=== PATIENT | male | born 1970 | race Caucasian/White ===

== ENCOUNTER 2016-12-02 17:56 | Inpatient (IN) | payer OTHER ==
[2016-12-02] MEDS ORDERED: ACETAMINOPHEN INJECTION 100 ML IVPB ONE (18:02)
[2016-12-02] MEDS ORDERED: SODIUM CHLORIDE 1,000 ML IV STA (18:04)
--- NOTE | 2016-12-02 18:04 | PDOC ---
History of Present Illness - General History Source: Patient, EMS, Old Records Exam Limitations: No Limitations - History of Present Illness Initial Comments: 12/02/16 19:25 The patient is a 46 year old male with past medical history of IDDM, CHF, CKD, hypothyroidism, bipolar disorder, and schizophrenia who arrives to the ED via EMS from the [address] [place] [address] with complaints of fever, chills, and weakness that began today. At the clinic, the patient was noted to be hypotensive with bp of 70/40. The patient also complains of a dry cough which began three days ago and states that he has become increasingly weak since this morning. He has also complained of urinary urgency, stating he has had a few accidents today. He denies any nausea, vomiting diarrhea. He denies chest pain or shortness of breath. He denies any other urinary symptoms. As per EMS, the patient recently left [facility] last week and has since been living on his own, with a nurse visiting during the day. He reports being compliant with his medications and took his insulin this morning. PCP: Rey Pitts <Ellyn Cruz - Last Filed: 12/02/16 22:59> <Jayleen Suárez - Last Filed: 12/03/16 02:30> - General Chief Complaint: SIRS, Suspected/Possible Stated Complaint: WEAKNESS Time Seen by Provider: 12/02/16 18:02 Past History <Ellyn Cruz - Last Filed: 12/02/16 22:59> - Past Medical History Anemia: No Asthma: No Cardiac Disorders: Yes (hypertension) CVA: No CHF: Yes Dementia: No Diabetes: Yes GI Disorders: Yes (chronic kidney disorder) Disorders: No HTN: Yes Hypercholesterolemia: Yes Psychiatric Problems: Yes (bipolar disorder,unspecified schizophrenia) Seizures: No Thyroid Disease: Yes (hypothyroidism) - Surgical History Abdominal Surgery: No Appendectomy: No Cardiac Surgery: No Cholecystectomy: No Lung Surgery: No Neurologic Surgery: No - Immunization History Immunization Up to Date: Yes - Psycho/Social/Smoking Cessation Hx Anxiety: No Suicidal Ideation: No Smoking History: Former smoker Have you smoked in the past 12 months: No Number of Cigarettes Smoked Daily: 5 'Breaking Loose' booklet given: 10/18/15 Hx Alcohol Use: No Drug/Substance Use Hx: No Substance Use Type: None Hx Substance Use Treatment: No <Jayleen Suárez - Last Filed: 12/03/16 02:30> - Past Medical History Allergies/Adverse Reactions: Allergies Allergy/AdvReac Type Severity Reaction Status Date / Time No Known Allergies Allergy Verified 07/06/16 08:47 Home Medications: Ambulatory Orders Acetaminophen [Tylenol] 325 mg PO PRN 12/02/16 Chlorpromazine [Thorazine -] 150 mg PO HS 12/02/16 Clonazepam [Klonopin] 1 mg PO HS 12/02/16 Collagenase Clostridium Hist. [Santyl] 1 applic TP DAILY 12/02/16 Divalproex [Depakote -] 500 mg PO BID 12/02/16 Docusate Sodium [Colace -] 100 mg PO BID 12/02/16 Dorzolamide HCl [Trusopt 2%] 1 drop OD BID 12/02/16 Fenofibric Acid (Choline) [Fenofibric Acid] 135 mg PO DAILY 12/02/16 Guaifenesin [Robitussin] 100 mg PO PRN 12/02/16 Hydrocodone/Acetaminophen [[place] 7.5-325 Tablet] 1 each PO Q8H 12/02/16 Insulin (Novolog) [Novolog] 0 units SQ PRN 12/02/16 Insulin Glargine,Hum.rec.anlog [Lantus (nf)] 0 units SQ DAILY 12/02/16 Insulin Lispro [Humalog] 100 unit SQ ASDIR 12/02/16 Ketoconazole 2% Shampoo [Nizoral 2% Shampoo -] 1 applic TP ASDIR 12/02/16 Linagliptin [Tradjenta] 5 mg PO DAILY 12/02/16 Lorazepam [Ativan] 1 mg PO PRN 12/02/16 Magnesium Hydroxide [Milk of Magnesia] 400 mg PO PRN 12/02/16 Na Phos,M-B/Na Phos,Di-Ba [Fleet Enema] 133 ml RC PRN 12/02/16 Ramipril [Altace] 2.5 mg PO DAILY 12/02/16 Selenium Sulfide [Selenium Sulfide 2.25% Shampoo] 1 applic TP ASDIR 12/02/16 Simvastatin [Zocor -] 20 mg PO HS 12/02/16 Timolol 0.5% [Timoptic 0.5%] 1 drop OD BID 12/02/16 Review of Systems - Review of Systems Able to Perform ROS?: Yes Comments:: 12/02/16 19:25 CONSTITUTIONAL: Present: fever, chills, generalized weakness Absent: diaphoresis, loss of appetite HEENT: Absent: rhinorrhea, nasal congestion, throat pain, throat swelling, difficulty swallowing, mouth swelling, ear pain, eye pain, visual Changes CARDIOVASCULAR: Absent: chest pain, syncope, palpitations, irregular heart rate, lightheadedness , peripheral edema RESPIRATORY: Present: cough Absent: shortness of breath, dyspnea with exertion, orthopnea, wheezing, stridor , hemoptysis GASTROINTESTINAL: Absent: abdominal pain, abdominal distension, nausea, vomiting, diarrhea, constipation, melena, hematochezia GENITOURINARY: Present: urinary urgency Absent: dysuria, frequency, hesitancy, hematuria, flank pain, genital pain MUSCULOSKELETAL: Absent: myalgia, arthralgia, joint swelling SKIN: Absent: rash, itching, pallor HEMATOLOGIC/IMMUNOLOGIC: Absent: easy bleeding, easy bruising, lymphadenopathy, frequent infections ENDOCRINE: Absent: unexplained weight gain, unexplained weight loss, heat intolerance, cold intolerance NEUROLOGIC: Absent: headache, focal weakness or paresthesias, dizziness, unsteady gait, seizure, mental status changes, bladder or bowel incontinence PSYCHIATRIC: Absent: anxiety, depression, suicidal or homicidal ideation, hallucinations. All Other Systems: Reviewed and Negative <Ellny Cruz - Last Filed: 12/02/16 22:59> *Physical Exam - Vital Signs Last Vital Signs Temp Pulse Resp BP Pulse Ox 103.4 F H 126 H 28 H 106/63 98 12/02/16 18:02 12/02/16 18:02 12/02/16 18:02 12/02/16 18:02 12/02/16 18:02 - Physical Exam Comments: 12/02/16 19:32 GENERAL: Febrile. Awake and alert. No acute distress. HEENT: Normocephalic, atraumatic. PERRLA, EOMI. No conjunctival pallor. Sclera are non- icteric. Moist mucous membranes. Oropharynx is clear. NECK: Supple. Full ROM. No JVD. Carotid pulses 2+ and symmetric, without bruits. No thyromegaly. No lymphadenopathy. CARDIOVASCULAR: Tachycardic. Regular rate and rhythm. No murmurs, rubs, or gallops. Distal pulses are 2+ and symmetric. PULMONARY: No evidence of respiratory distress. Lungs clear to auscultation bilaterally. No wheezing, rales or rhonchi. ABDOMINAL: Soft. Non-tender. Non-distended. No rebound or guarding. No organomegaly. Normoactive bowel sounds. MUSCULOSKELETAL Normal range of motion at all joints. No bony deformities or tenderness. No CVA tenderness. EXTREMITIES: Left lower leg is very erythematous, warm to touch, and edematous. There is a 6mm foul smelling, nonhealing, ulcer on left big toe with warmth, cellulitis, and erythema on the dorsal surface of the foot. No cyanosis. No clubbing. No calf tenderness. SKIN: Warm and dry. Normal capillary refill. No rashes. No jaundice. NEUROLOGICAL: Alert, awake, appropriate. Cranial nerves 2-12 intact. No deficits to light touch and temperature in face, upper extremities and lower extremities. No motor deficits in the in face, upper extremities and lower extremities. Normoreflexic in the upper and lower extremities. Normal speech. Toes are down-going bilaterally. Gait is normal without ataxia. PSYCHIATRIC: Cooperative. Good eye contact. Appropriate mood and affect. <Ellyn Cruz - Last Filed: 12/02/16 22:59> Heart Score/ECG Review - ECG Intrepretation Comment:: 12/02/16 20:01 ECG obtained at 19:01 Possible left atrial enlargement Incomplete right bundle branch block Left anterior fasicular block Vent rate: 132 bpm <Ellyn Cruz - Last Filed: 12/02/16 22:59> ED Treatment Course - LABORATORY CBC & Chemistry Diagram: 12/02/16 18:18 12/02/16 18:18 - ADDITIONAL ORDERS Additional order review: Laboratory Results 12/02/16 12/02/16 12/02/16 18:33 18:18 18:18 INR PTT (Actin FS) VBG pH 7.39 POC VBG pCO2 35.0 L POC VBG pO2 25.8 L Sodium 139 Potassium 4.9 Chloride 108 H Carbon Dioxide 22 Anion Gap 9 BUN 30 H D Creatinine 3.1 H Creat Clearance w eGFR 21.61 Random Glucose 99 D Lactic Acid 1.515 Calcium 8.8 Total Bilirubin 0.6 AST 58 H ALT 37 Alkaline Phosphatase 60 Creatine Kinase 345 H Troponin I 0.05 D Total Protein 7.9 Albumin 2.7 L 12/02/16 18:18 INR 1.20 H PTT (Actin FS) 36.8 H VBG pH POC VBG pCO2 POC VBG pO2 Sodium Potassium Chloride Carbon Dioxide Anion Gap BUN Creatinine Creat Clearance w eGFR Random Glucose Lactic Acid Calcium Total Bilirubin AST ALT Alkaline Phosphatase Creatine Kinase Troponin I Total Protein Albumin 12/02/16 18:18 RBC 3.84 L MCV 92.5 MCHC 32.8 RDW 16.6 H MPV 7.7 Neutrophils % 86.5 H D Lymphocytes % 6.7 L D Monocytes % 6.0 Eosinophils % 0.1 D Basophils % 0.7 - Medications Given in the ED: ED Medications Discontinued Medications Generic Name Dose Route Start Last Admin Trade Name Johnsonq PRN Reason Stop Dose Admin Acetaminophen 1,000 mg 12/02/16 18:05 12/02/16 18:08 Ofirmev Injection - IVPB 12/02/16 18:06 1,000 mg ONCE ONE Administration Sodium Chloride 1,000 mls @ 1,000 mls/hr 12/02/16 18:04 12/02/16 18:07 Normal Saline - IV 12/02/16 19:03 1,000 mls/hr ASDIR STA Administration <Ellyn Cruz - Last Filed: 12/02/16 22:59> - LABORATORY CBC & Chemistry Diagram: 12/02/16 18:18 12/02/16 18:18 <Jayleen Suárez - Last Filed: 12/03/16 02:30> Medical Decision Making - Medical Decision Making 12/02/16 22:59 22:[address] Dr. Mariza Bartlett, admitting physician for Dr. Pitts. Call returned at 22:19. Case was discussed and patient will be admitted. <Ellyn Cruz - Last Filed: 12/02/16 22:59> - Medical Decision Making 12/03/16 02:28 46-year-old male brought in by ambulance for hypotension, tachycardia and fever Medical history significant for insulin-dependent diabetes History the patient had been living at [facility] for 3 years and one week ago was moved into a home. He felt weak today and went to the [facility] clinic and was found have a systolic blood pressure of 70 and an ambulance was called to the clinic Patient has left lower leg cellulitis He is a leukocytosis of almost 20,000 . He received Zosyn and vancomycin. Upon arrival case With Dr. Bartlett admitted the patient to [facility] <Jayleen Suárez - Last Filed: 12/03/16 02:30> *DC/Admit/Observation/Transfer - Attestations Scribe Attestion: 12/02/16 19:33 Documentation prepared by Ellyn Cruz, acting as auditor medical claims for Jayleen Suárez MD/DO. <Ellyn Cruz - Last Filed: 12/02/16 22:59> - Discharge Dispostion Admit: Yes <Jayleen Suárez - Last Filed: 12/03/16 02:30> Diagnosis at time of Disposition: Controlled type 1 diabetes mellitus with peripheral vascular disease, Left leg cellulitis Fever Qualifiers: Fever type: unspecified Qualified Code(s): R50.9 - Fever, unspecified Chronic kidney disease Qualifiers: Chronic kidney disease stage: unspecified stage Qualified Code(s): N18.9 - Chronic kidney disease, unspecified - Referrals
[2016-12-02] MEDS ORDERED: ACETAMINOPHEN 1000 MG/100 ML VIAL (NON FORMULARY) IVPB ONE (18:05)
[2016-12-02] MEDS ORDERED: VANCOMYCIN 1,000 MG in DEXTROSE 5%-WATER - 250 ML IVPB ONE (18:20)
[2016-12-02] MEDS ORDERED: PIPERACILLIN/TAZOB 3.375 GM 3.375 GM in DEXTROSE 5%-WATER - 50 ML IVPB ONE (18:20)
[2016-12-02 18:38] LABS: VENOUS BLOOD GAS HCO3 20.6 meq/L (22-29); VENOUS PH 7.39 (7.31-7.41)
[2016-12-02 18:39] LABS: BASOPHIL 0.7 % (0-2.0); EOSINOPHIL 0.1 % (0-4.5); MCH 30.3 pg (25.7-33.7); MCHC 32.8 g/dl (32.0-35.9); MEAN CELL VOLUME 92.5 fl (80-96); MEAN PLT VOLUME 7.7 fl (7.5-11.1); NEUTROPHILS 86.5 % (42.8-82.8); PLATELET COUNT 198 K/MM3 (134-434); RDW 16.6 % (11.9-15.9); WHITE BLOOD COUNT 19.4 K/mm3 (4.0-10.0)
[2016-12-02 19:07] LABS: ALBUMIN 2.7 g/dl (3.4-5.0); CALCIUM 8.8 mg/dL (8.5-10.1)
[2016-12-02 19:12] LABS: BILIRUBIN,TOTAL 0.6 mg/dL (0.2-1.0); CREATININE 3.1 mg/dL (0.7-1.3); INR 1.2 (0.82-1.09); PROTHROMBIN TIME (PATIENT) 13.3 SEC (9.98-11.88); TOT PROT 7.9 g/dl (6.4-8.2); TROPONIN I 0.05 ng/ml (0.00-0.05)
[2016-12-02 19:15] LABS: ACTIVATED PTT 36.8 SECONDS (26.9-34.4)
[2016-12-02 19:30] LABS: URINE APPEARANCE CLEAR; URINE BILIRUBIN NEGATIVE (NEGATIVE); URINE COLOR YELLOW; URINE GLUCOSE (UA) NEGATIVE (NEGATIVE); URINE KETONE TRACE (NEGATIVE); URINE LEUK ESTERASE NEGATIVE (NEGATIVE); URINE NITRITE NEGATIVE (NEGATIVE); URINE UROBILINOGEN NEGATIVE E.U./dl (0.2-1.0)
[2016-12-02 19:34] LABS: URINE BLOOD 1+ (NEGATIVE); URINE PROTEIN 2+ (NEGATIVE)
[2016-12-02 19:36] LABS: URINE BACTERIA RARE /hpf (NONE SEEN); URINE MUCUS RARE; URINE RBC 4 /hpf (0-3); URINE WBC 2 /hpf (3-5)
[2016-12-02] MEDS ORDERED: PIPERACILLIN/TAZOB 3.375 GM 50 ML IVPB ONE (19:55)
[2016-12-03 01:44] LABS: ARTERIAL BLD GAS O2 SATURATION 93.8 % (90-98.9); ARTERIAL BLOOD GAS BASE EXCESS -4.5 meq/l (-2-2); ARTERIAL BLOOD GAS PO2 74.4 mmHg (80-100)
[2016-12-03 01:46] LABS: ALLENS TEST POSITIVE; ART PUNCT SITE RIGHT RADIAL; LPM/O2% 21%; PT. ON O2? NO; TYPE OF O2 ROOM AIR
[2016-12-03] MEDS ORDERED: clonazePAM 0.5 MG TABLET PO ONE (03:09)
[2016-12-03] MEDS ORDERED: clonazePAM 0.5 MG TABLET ONE (03:12)
[2016-12-03] MEDS ORDERED: ACETAMINOPHEN 325 MG TABLET (FP) ONE (03:14)
[2016-12-03] MEDS ORDERED: ACETAMINOPHEN 325 MG TABLET (FP) PO ONE (03:15)
--- NOTE | 2016-12-03 10:41 | HP ---
Admitting History and Physical - Primary Care Physician PCP: Rey Pitts - Admission Chief Complaint: LEDY. UTI. FEVER. WEAKNESS. 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: Other (DEPRESSION/FLAT AFFECT) Cardiovascular: Yes: HTN, Hyperlipdemia, Other Renal/: Yes: Other (CKD) Psych: Yes: Bipolar Endocrine: Yes: Diabetes Mellitus, Hypothyroidism - Past Surgical History Past Surgical History: Yes: None - Smoking History Smoking history: Former smoker Have you smoked in the past 12 months: No Aproximately how many cigarettes per day: 5 - Alcohol/Substance Use Hx Alcohol Use: No - Social History History of Recent Travel: No Home Medications - Allergies Allergies/Adverse Reactions: Allergies Allergy/AdvReac Type Severity Reaction Status Date / Time No Known Allergies Allergy Verified 07/06/16 08:47 - Home Medications Home Medications: Ambulatory Orders Acetaminophen [Tylenol] 325 mg PO PRN 12/02/16 Chlorpromazine [Thorazine -] 150 mg PO HS 12/02/16 Clonazepam [Klonopin] 1 mg PO HS 12/02/16 Collagenase Clostridium Hist. [Santyl] 1 applic TP DAILY 12/02/16 Divalproex [Depakote -] 500 mg PO BID 12/02/16 Docusate Sodium [Colace -] 100 mg PO BID 12/02/16 Dorzolamide HCl [Trusopt 2%] 1 drop OD BID 12/02/16 Fenofibric Acid (Choline) [Fenofibric Acid] 135 mg PO DAILY 12/02/16 Guaifenesin [Robitussin] 100 mg PO PRN 12/02/16 Hydrocodone/Acetaminophen [[place] 7.5-325 Tablet] 1 each PO Q8H 12/02/16 Insulin (Novolog) [Novolog] 0 units SQ PRN 12/02/16 Insulin Glargine,Hum.rec.anlog [Lantus (nf)] 0 units SQ DAILY 12/02/16 Insulin Lispro [Humalog] 100 unit SQ ASDIR 12/02/16 Ketoconazole 2% Shampoo [Nizoral 2% Shampoo -] 1 applic TP ASDIR 12/02/16 Linagliptin [Tradjenta] 5 mg PO DAILY 12/02/16 Lorazepam [Ativan] 1 mg PO PRN 12/02/16 Magnesium Hydroxide [Milk of Magnesia] 400 mg PO PRN 12/02/16 Na Phos,M-B/Na Phos,Di-Ba [Fleet Enema] 133 ml RC PRN 12/02/16 Ramipril [Altace] 2.5 mg PO DAILY 12/02/16 Selenium Sulfide [Selenium Sulfide 2.25% Shampoo] 1 applic TP ASDIR 12/02/16 Simvastatin [Zocor -] 20 mg PO HS 12/02/16 Timolol 0.5% [Timoptic 0.5%] 1 drop OD BID 12/02/16 Family Disease History - Family Disease History Family Disease History: Diabetes: Father Review of Systems - Review of Systems Constitutional: reports: Chills, Fever Cardiovascular: denies: Chest Pain Respiratory: denies: SOB Gastrointestinal: denies: Abdominal Pain Physical Examination Vital Signs: Vital Signs Temperature 100 F H 12/03/16 07:51 Pulse Rate 105 H 12/03/16 07:51 Respiratory Rate 18 12/03/16 07:51 Blood Pressure 96/62 12/03/16 07:51 O2 Sat by Pulse Oximetry (%) 96 12/03/16 07:51 Constitutional: Yes: Calm Cardiovascular: Yes: Regular Rate and Rhythm, S2, S3 Respiratory: Yes: CTA Bilaterally Gastrointestinal: Yes: Normal Bowel Sounds, Soft Edema: Yes Integumentary: Yes: Erythema (LLE + L #1 TOE ULCER -> PER PATIENT BOTH ARE CHRONIC) Imaging - Results Chest X-ray: Report Reviewed Problem List - Problems (1) LEDY (acute kidney injury) Code(s): N17.9 - ACUTE KIDNEY FAILURE, UNSPECIFIED (2) Bipolar 1 disorder Code(s): F31.9 - BIPOLAR DISORDER, UNSPECIFIED (3) Chronic kidney disease Code(s): N18.9 - CHRONIC KIDNEY DISEASE, UNSPECIFIED Qualifiers: Chronic kidney disease stage: unspecified stage Qualified Code(s): N18.9 - Chronic kidney disease, unspecified (4) Diabetes Code(s): E11.9 - TYPE 2 DIABETES MELLITUS WITHOUT COMPLICATIONS Qualifiers: Diabetes mellitus type: type 2 Diabetes mellitus complication status: without complication (5) Fever Code(s): R50.9 - FEVER, UNSPECIFIED Qualifiers: Fever type: unspecified Qualified Code(s): R50.9 - Fever, unspecified (6) Hypothyroid Code(s): E03.9 - HYPOTHYROIDISM, UNSPECIFIED Qualifiers: Hypothyroidism type: acquired Qualified Code(s): E03.9 - Hypothyroidism, unspecified (7) Sepsis Code(s): A41.9 - SEPSIS, UNSPECIFIED ORGANISM Qualifiers: Sepsis type: sepsis due to unspecified organism Qualified Code(s): A41.9 - Sepsis, unspecified organism (8) Weakness Code(s): R53.1 - WEAKNESS (9) HTN (hypertension) Code(s): I10 - ESSENTIAL (PRIMARY) HYPERTENSION (10) CHF (congestive heart failure) Code(s): I50.9 - HEART FAILURE, UNSPECIFIED (11) Psychosis Code(s): F29 - UNSP PSYCHOSIS NOT DUE TO A SUBSTANCE OR KNOWN PHYSIOL COND Assessment/Plan The patient is a 46 year old male with past medical history of IDDM, CHF, CKD, hypothyroidism, bipolar disorder, and schizophrenia who arrives to the ED via EMS from the [address] [place] [address] with complaints of fever, chills, and weakness that began today. At the clinic, the patient was noted to be hypotensive with bp of 70/40. The patient also complains of a dry cough which began three days ago and states that he has become increasingly weak since this morning. He has also complained of urinary urgency, stating he has had a few accidents today. He denies any nausea, vomiting diarrhea. He denies chest pain or shortness of breath. He denies any other urinary symptoms. As per EMS, the patient recently left [facility] last week and has since been living on his own, with a nurse visiting during the day. He reports being compliant with his medications and took his insulin this morning. PCP: Rey Pitts (1) LEDY (acute kidney injury) Code(s): N17.9 - ACUTE KIDNEY FAILURE, UNSPECIFIED H/O CKD Cr 3.4 RENAL CONSULTED (2) Bipolar 1 disorder Code(s): F31.9 - BIPOLAR DISORDER, UNSPECIFIED FROM [facility] Rx RESUMED (3) Chronic kidney disease Code(s): N18.9 - CHRONIC KIDNEY DISEASE, UNSPECIFIED Qualifiers: Chronic kidney disease stage: unspecified stage Qualified Code(s): N18.9 - Chronic kidney disease, unspecified (4) Diabetes Code(s): E11.9 - TYPE 2 DIABETES MELLITUS WITHOUT COMPLICATIONS Qualifiers: Diabetes mellitus type: type 2 Diabetes mellitus complication status: without complication BGM ISS (5) Fever Code(s): R50.9 - FEVER, UNSPECIFIED Qualifiers: Fever type: unspecified Qualified Code(s): R50.9 - Fever, unspecified Tmax 103.4 CXr NAD F/U CULTURES ID CONSULTED L #1 TOE ULCER + LLE CELLULITIS? -> DR BONNER (6) Hypothyroid Code(s): E03.9 - HYPOTHYROIDISM, UNSPECIFIED Qualifiers: Hypothyroidism type: acquired Qualified Code(s): E03.9 - Hypothyroidism, unspecified - TSH (7) Sepsis Code(s): A41.9 - SEPSIS, UNSPECIFIED ORGANISM Qualifiers: Sepsis type: sepsis due to unspecified organism Qualified Code(s): A41.9 - Sepsis, unspecified organism (8) Weakness Code(s): R53.1 - WEAKNESS R/O SEPSIS (9) HTN (hypertension) Code(s): I10 - ESSENTIAL (PRIMARY) HYPERTENSION (10) CHF (congestive heart failure) Code(s): I50.9 - HEART FAILURE, UNSPECIFIED CXr NAD TROP NEG x 1 -> F/U - BNP (11) Psychosis Code(s): F29 - UNSP PSYCHOSIS NOT DUE TO A SUBSTANCE OR KNOWN PHYSIOL COND AND [employer]
[2016-12-03] MEDS ORDERED: clonazePAM 0.5 MG TABLET PO PRN (10:47)
[2016-12-03 10:51] VITALS: BMI 31.4
[2016-12-03] MEDS ORDERED: ACETAMINOPHEN 325 MG TABLET (FP) PO PRN (11:00)
--- NOTE | 2016-12-03 11:49 | PN ---
Progress Note (short form) - Note Progress Note: ID Consult dictated cellulitis L LE non-healing L great toe ulcer fever/leukocytosis- possible sepsis secondary to skin infection chronic kidney disease bipolar disorder diabetes mellitus possible UTI Pending c/s, empiric vancomycin/ zosyn adjusted for renal failure
--- NOTE | 2016-12-03 11:54 | EKG ---
Test Reason : Blood Pressure : / mmHG Vent. Rate : 132 BPM Atrial Rate : 132 BPM P-R Int : 148 ms QRS Dur : 108 ms QT Int : 306 ms P-R-T Axes : 062 -48 033 degrees QTc Int : 453 ms SINUS TACHYCARDIA POSSIBLE LEFT ATRIAL ENLARGEMENT INCOMPLETE RIGHT BUNDLE BRANCH BLOCK LEFT ANTERIOR FASCICULAR BLOCK ABNORMAL ECG WHEN COMPARED WITH ECG OF 06-JUL-2016 08:46, LEFT ANTERIOR FASCICULAR BLOCK IS NOW PRESENT INCOMPLETE RIGHT BUNDLE BRANCH BLOCK IS NOW PRESENT Confirmed by BEBETO BARCENAS, IVY ([id number]) on 12/03/2016 11:54:02 AM Referred By: Confirmed By:IVY TATE MD
[2016-12-03] MEDS ORDERED: VANCOMYCIN 1 GRAM (PRE-DOCKED) 250 ML IVPB ONE ×2 (11:55→12:10)
[2016-12-03] MEDS ORDERED: HEPARIN NA (PORCINE) 5,000 UNITS/ML 1ML VIAL ONE (12:10)
[2016-12-03] MEDS ORDERED: DIVALPROEX SODIUM 500 MG TABLET E.C. PO ONE (12:32)
[2016-12-03] MEDS: HEPARIN NA (PORCINE) 5,000 UNITS/ML 1ML VIAL SQ SCH ×2 (12:47→21:40)
[2016-12-03] MEDS ORDERED: INSULIN REGULAR HUMAN 100 UNITS/ML *VIAL SQ ONE (12:51)
[2016-12-03] MEDS ORDERED: INSULIN REGULAR HUMAN 100 UNITS/ML *VIAL ONE (12:54)
[2016-12-03] MEDS: PIPERACILLIN/TAZOB 2.25 GM 50 ML IVPB SCH ×4 (13:04→20:30)
--- NOTE | 2016-12-03 13:47 | CONS ---
DATE OF CONSULTATION: DATE OF DICTATION: 12/03/2016 The patient is a 46-year-old male with history of bipolar disorder, diabetes, chronic kidney disease, evaluated for cellulitis and sepsis. The patient had been a resident of [facility] for the past 3 years. He was discharged approximately 1 week ago. He reports that over the past 2-3 days he had experienced generalized weakness, fever, and chills. He had presented to local clinic where he was noted to be hypotensive with a blood pressure of 70/40. He also complained of dry cough and some urinary urgency. He was transferred to the emergency room at [facility] where he was found to have a fever of 103.4, white blood cell count of 19,000. Examination revealed cellulitis of the left lower extremity. He was empirically treated with vancomycin and Zosyn. At the present time he complains of some left lower extremity pain. He has had a nonhealing ulcer present on his great toe for some time. He denied any purulent wound drainage. He denies recent illness. According to the notes, he was hospitalized last in June of 2016, at which time he required an ICU admission for cellulitis complicated by sepsis. PAST MEDICAL HISTORY: Positive for bipolar disorder, schizophrenia, diabetes mellitus, hypertension, chronic kidney disease, hypothyroidism, nonhealing left great toe ulcer. PAST SURGICAL HISTORY: Status post right ankle fracture. ALLERGIES: No known allergies. MEDICATIONS: NovoLog, Thorazine, Klonopin, Depakote, Altace, Zocor. SOCIAL HISTORY: He was residing in a care home facility for 3 years until his discharge approximately 1 week ago. He is a former smoker. REVIEW OF SYSTEMS: Neurologic: Positive for bipolar disorder. No loss of consciousness, seizure activity, or focal weakness. Cardiac: Negative chest pain or palpitations. Respiratory: Positive for dry cough. Gastrointestinal: Negative vomiting or diarrhea. Genitourinary: Positive for urinary urgency. LABORATORY DATA: White count 19.4, hematocrit 35.5, platelet count 198. BUN 30, creatinine 3.1. Urinalysis: Two white cells. Chest x-ray negative for acute infiltrate. PHYSICAL EXAMINATION: General: He is awake and alert. He is not acutely toxic appearing. Flat affect. Vital Signs: Temperature 98.4, blood pressure 104/65, pulse 103 and regular, respirations 20 per minute. HEENT: Sclerae are anicteric. Cardiovascular: Heart sounds S1, S2. Respiratory: Lungs clear bilaterally. No rhonchi, rales, or wheezing. Abdomen: Soft. No tenderness elicited. No mass, rebound, or rigidity. Examination of the Left Lower Extremity: The patient has a 2-cm dry ulceration present on the plantar aspect of the left great toe. There is erythema and swelling of the left great toe. Erythema extends to the dorsum of the foot and proximally to the leg up to the midcalf area. It is warm to touch. No crepitus or fluctuance. No lymphangitic streaking. IMPRESSION: 1. Cellulitis of the left lower extremity. 2. Nonhealing left great toe ulcer. 3. Fever, leukocytosis, possible sepsis secondary to skin infection. 4. Chronic kidney disease. 5. Bipolar disorder. 6. Diabetes mellitus. 7. Possible urinary tract infection. Pending sepsis workup, empiric antibiotic coverage with vancomycin and Zosyn adjusted for renal failure. Local wound care. Podiatry evaluation for possible debridement of ulcer and trimming of hypertrophic toenails. Thank you for the kind referral. PAULINE WATSON M.D. [id number]
[2016-12-03] MEDS: INSULIN SLIDING SCALE (NOVOLOG) 1 VIAL SQ SCH ×2 (16:39→21:40)
[2016-12-03] MEDS ORDERED: PT OWN MED DRAWER 7, Y5N ONE (17:22)
--- NOTE | 2016-12-03 18:02 | CONSULT ---
Consult Consult Specialty:: Nephrology Reason for Consultation:: LEDY and CKD - History of Present Illness Chief Complaint: fever, chills, and weakness History of Present Illness: Pt is a 46 year old male with pmhx of CKD, DM, CHF, hypothyroidism, and schizophrenia who presents to the ER from [facility] for fever and chills. He was found to have lower extremity cellulitis. He was hypotensive in the ER. I was called to evaluate him for elevated creatinine. Pt is known to me from prior visits. He has not followed up in the office. He has poor outpt follow up. He denies hematuria. He says she does take his meds. 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) Cardio/Vascular: Yes: HTN, Hyperlipdemia, Other Renal/: Yes: Renal Inusuff, Other (CKD) Psych: Yes: Bipolar Endocrine: Yes: Diabetes Mellitus, Hypothyroidism - Past Surgical History Past Surgical History: Yes: None - Alcohol/Substance Use Hx Alcohol Use: No - Smoking History Smoking history: Former smoker Have you smoked in the past 12 months: No Aproximately how many cigarettes per day: 5 - Social History Usual Living Arrangement: [facility] History of Recent Travel: No Home Medications - Allergies Allergies/Adverse Reactions: Allergies Allergy/AdvReac Type Severity Reaction Status Date / Time No Known Allergies Allergy Verified 07/06/16 08:47 - Home Medications Home Medications: Ambulatory Orders Acetaminophen [Tylenol] 325 mg PO PRN 12/02/16 Chlorpromazine [Thorazine -] 150 mg PO HS 12/02/16 Clonazepam [Klonopin] 1 mg PO HS 12/02/16 Collagenase Clostridium Hist. [Santyl] 1 applic TP DAILY 12/02/16 Divalproex [Depakote -] 500 mg PO BID 12/02/16 Docusate Sodium [Colace -] 100 mg PO BID 12/02/16 Dorzolamide HCl [Trusopt 2%] 1 drop OD BID 12/02/16 Fenofibric Acid (Choline) [Fenofibric Acid] 135 mg PO DAILY 12/02/16 Guaifenesin [Robitussin] 100 mg PO PRN 12/02/16 Hydrocodone/Acetaminophen [[place] 7.5-325 Tablet] 1 each PO Q8H 12/02/16 Insulin (Novolog) [Novolog] 0 units SQ PRN 12/02/16 Insulin Glargine,Hum.rec.anlog [Lantus (nf)] 0 units SQ DAILY 12/02/16 Insulin Lispro [Humalog] 100 unit SQ ASDIR 12/02/16 Ketoconazole 2% Shampoo [Nizoral 2% Shampoo -] 1 applic TP ASDIR 12/02/16 Linagliptin [Tradjenta] 5 mg PO DAILY 12/02/16 Lorazepam [Ativan] 1 mg PO PRN 12/02/16 Magnesium Hydroxide [Milk of Magnesia] 400 mg PO PRN 12/02/16 Na Phos,M-B/Na Phos,Di-Ba [Fleet Enema] 133 ml RC PRN 12/02/16 Ramipril [Altace] 2.5 mg PO DAILY 12/02/16 Selenium Sulfide [Selenium Sulfide 2.25% Shampoo] 1 applic TP ASDIR 12/02/16 Simvastatin [Zocor -] 20 mg PO HS 12/02/16 Timolol 0.5% [Timoptic 0.5%] 1 drop OD BID 12/02/16 Family Disease History - Family Disease History Family Disease History: Diabetes: Father Review of Systems - Review of Systems Constitutional: reports: Chills, Fever Eyes: reports: No Symptoms HENT: reports: No Symptoms Neck: reports: No Symptoms Cardiovascular: reports: No Symptoms Respiratory: reports: Cough Gastrointestinal: reports: No Symptoms Genitourinary: reports: Dysuria Musculoskeletal: reports: No Symptoms Integumentary: reports: Erythema Endocrine: reports: No Symptoms Hematology/Lymphatic: reports: No Symptoms Physical Exam Vital Signs: Vital Signs Temperature 97.8 F 12/03/16 17:46 Pulse Rate 95 H 12/03/16 17:46 Respiratory Rate 18 12/03/16 15:38 Blood Pressure 118/71 12/03/16 17:46 O2 Sat by Pulse Oximetry (%) 97 12/03/16 15:40 Constitutional: Yes: Anxious Eyes: Yes: Conjunctiva Clear HENT: Yes: Atraumatic Cardiovascular: Yes: S1, S2 Respiratory: Yes: CTA Bilaterally Gastrointestinal: Yes: Soft Renal/: Yes: WNL Musculoskeletal: Yes: Muscle Weakness Edema: Yes Integumentary: Yes: Other (cellulitis, left leg) Neurological: Yes: Oriented Psychiatric: Yes: Agitated Labs: Laboratory Tests 12/02/16 12/02/16 18:18 19:13 WBC 19.4 H D RBC 3.84 L Hgb 11.6 L D Hct 35.5 Urine Color Yellow Urine Appearance Clear Urine pH 6.0 Ur Specific [place] 1.016 Urine Protein 2+ H Urine Glucose (UA) Negative Urine Ketones Trace H Urine Blood 1+ H Urine Nitrite Negative Urine Bilirubin Negative Urine Urobilinogen Negative Ur Leukocyte Esterase Negative Urine RBC 4 Urine WBC 2 Imaging - Results Chest X-ray: Report Reviewed Problem List - Problems (1) CHF (congestive heart failure) Code(s): I50.9 - HEART FAILURE, UNSPECIFIED (2) Chronic kidney disease Code(s): N18.9 - CHRONIC KIDNEY DISEASE, UNSPECIFIED Qualifiers: Chronic kidney disease stage: unspecified stage Qualified Code(s): N18.9 - Chronic kidney disease, unspecified (3) HTN (hypertension) Code(s): I10 - ESSENTIAL (PRIMARY) HYPERTENSION (4) LEDY (acute kidney injury) Code(s): N17.9 - ACUTE KIDNEY FAILURE, UNSPECIFIED (5) Bipolar 1 disorder Code(s): F31.9 - BIPOLAR DISORDER, UNSPECIFIED (6) Cellulitis of left lower leg Code(s): L03.116 - CELLULITIS OF LEFT LOWER LIMB (7) Diabetes mellitus type 2 in obese Code(s): E11.9 - TYPE 2 DIABETES MELLITUS WITHOUT COMPLICATIONS E66.9 - OBESITY, UNSPECIFIED (8) Hypothyroid Code(s): E03.9 - HYPOTHYROIDISM, UNSPECIFIED Qualifiers: Hypothyroidism type: acquired Qualified Code(s): E03.9 - Hypothyroidism, unspecified Assessment/Plan Current Medications Generic Name Dose Route Start Last Admin Trade Name Freq PRN Reason Stop Dose Admin Acetaminophen 325 mg 12/03/16 11:00 Tylenol - PO Q6H PRN Atorvastatin Calcium 10 mg 12/03/16 22:00 Lipitor - PO HS RO[facility] Chlorpromazine HCl 150 mg 12/03/16 22:00 Thorazine - PO HS ROBE Clonazepam 1 mg 12/03/16 10:47 Klonopin - PO Q6H PRN AGITATION Collagenase 1 applic 12/04/16 10:00 Santyl - TP DAILY [facility] Divalproex Sodium 500 mg 12/03/16 22:00 Depakote - PO BID [facility] Docusate Sodium 100 mg 12/03/16 22:00 Colace - PO BID [facility] Dorzolamide HCl 1 drop 12/03/16 22:00 Trusopt 2% OD BID [facility] Heparin Sodium (Porcine) 5,000 unit 12/03/16 10:00 12/03/16 12:47 Heparin - SQ 5,000 unit BID [facility] Administration Piperacillin Sod/Tazobactam Sod 50 mls @ 100 mls/hr 12/03/16 12:30 12/03/16 17: 23 Zosyn 2.25gm Ivpb (Pre-Docked) IVPB 100 mls/hr Q8H-IV [facility] Administration Insulin Aspart 0 vial 12/03/16 16:30 12/03/16 16:39 Novolog Vial Sliding Scale - SQ 8 units ACHS [facility] Administration Protocol Ramipril 2.5 mg 12/04/16 10:00 Altace - PO DAILY [facility] Timolol Maleate 1 drop 12/03/16 22:00 Timoptic 0.5% OD BID [facility] Impression 1. CKD 2. DM 3. sepsis 4. cellulitis 5. bipolar 6. schizophrenia 7. 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
[2016-12-03] MEDS ORDERED: SODIUM CHLORIDE 1,000 ML IV SCH (18:30)
--- NOTE | 2016-12-03 18:47 | CONSULT ---
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) Cardio/Vascular: Yes: HTN, Hyperlipdemia, Other Renal/: Yes: Renal Inusuff, Other (CKD) Psych: Yes: Bipolar Endocrine: Yes: Diabetes Mellitus, Hypothyroidism - Past Surgical History Past Surgical History: Yes: None - Alcohol/Substance Use Hx Alcohol Use: No - Smoking History Smoking history: Former smoker Have you smoked in the past 12 months: No Aproximately how many cigarettes per day: 5 - Social History Usual Living Arrangement: [facility] History of Recent Travel: No Home Medications - Allergies Allergies/Adverse Reactions: Allergies Allergy/AdvReac Type Severity Reaction Status Date / Time No Known Allergies Allergy Verified 07/06/16 08:47 - Home Medications Home Medications: Ambulatory Orders Acetaminophen [Tylenol] 325 mg PO PRN 12/02/16 Chlorpromazine [Thorazine -] 150 mg PO HS 12/02/16 Clonazepam [Klonopin] 1 mg PO HS 12/02/16 Collagenase Clostridium Hist. [Santyl] 1 applic TP DAILY 12/02/16 Divalproex [Depakote -] 500 mg PO BID 12/02/16 Docusate Sodium [Colace -] 100 mg PO BID 12/02/16 Dorzolamide HCl [Trusopt 2%] 1 drop OD BID 12/02/16 Fenofibric Acid (Choline) [Fenofibric Acid] 135 mg PO DAILY 12/02/16 Guaifenesin [Robitussin] 100 mg PO PRN 12/02/16 Hydrocodone/Acetaminophen [[place] 7.5-325 Tablet] 1 each PO Q8H 12/02/16 Insulin (Novolog) [Novolog] 0 units SQ PRN 12/02/16 Insulin Glargine,Hum.rec.anlog [Lantus (nf)] 0 units SQ DAILY 12/02/16 Insulin Lispro [Humalog] 100 unit SQ ASDIR 12/02/16 Ketoconazole 2% Shampoo [Nizoral 2% Shampoo -] 1 applic TP ASDIR 12/02/16 Linagliptin [Tradjenta] 5 mg PO DAILY 12/02/16 Lorazepam [Ativan] 1 mg PO PRN 12/02/16 Magnesium Hydroxide [Milk of Magnesia] 400 mg PO PRN 12/02/16 Na Phos,M-B/Na Phos,Di-Ba [Fleet Enema] 133 ml RC PRN 12/02/16 Ramipril [Altace] 2.5 mg PO DAILY 12/02/16 Selenium Sulfide [Selenium Sulfide 2.25% Shampoo] 1 applic TP ASDIR 12/02/16 Simvastatin [Zocor -] 20 mg PO HS 12/02/16 Timolol 0.5% [Timoptic 0.5%] 1 drop OD BID 12/02/16 Family Disease History - Family Disease History Family Disease History: Diabetes: Father Physical Exam Vital Signs: Vital Signs Temperature 97.8 F 12/03/16 17:46 Pulse Rate 95 H 12/03/16 17:46 Respiratory Rate 18 12/03/16 15:38 Blood Pressure 118/71 12/03/16 17:46 O2 Sat by Pulse Oximetry (%) 97 12/03/16 15:40 Assessment/Plan Vascular Surgery The patient is a 46 year old male with past medical history of IDDM, CHF, CKD, hypothyroidism, bipolar disorder, and schizophrenia who arrives to the ED via EMS from the [address] [place] [address] with complaints of fever, chills, and weakness that began today. At the clinic, the patient was noted to be hypotensive with bp of 70/40. The patient also complains of a dry cough which began three days ago and states that he has become increasingly weak since this morning. He has also complained of urinary urgency, stating he has had a few accidents today. He denies any nausea, vomiting diarrhea. He denies chest pain or shortness of breath. He denies any other urinary symptoms. As per EMS, the patient recently left [facility] last week and has since been living on his own, with a nurse visiting during the day. He reports being compliant with his medications and took his insulin this morning. PCP: Rey Pitts [facility] - NC/AT Lung - cTA Heart - RRR ABd - soft,nt,nd ext - warm, LLE great toe ulcer with callus. Left lower ext erythema. A/P LLE cellulitis. Left great toe ulcer for some time. Well known from wound care clinic. Pt with palpable pulses. IV antibiotics for cellulitis. Left great toe might have osteo. Can get MRI to diagnose. Ld Ribeiro DO
[2016-12-03] MEDS: DOCUSATE SODIUM 100 MG CAPSULE (FP) PO SCH (21:40)
[2016-12-03] MEDS: ATORVASTATIN CA 10 MG TABLET (FP) PO SCH (21:40)
[2016-12-03] MEDS ORDERED: TIMOLOL 0.5% OPHTHALMIC SOL 5 ML BOTTLE OD SCH (22:00)
[2016-12-03] MEDS ORDERED: DORZOLAMIDE 2% HCL OPHTHALMIC SOLUTION 10 ML BOTTLE OD SCH (22:00)
[2016-12-03] MEDS: CHLORPROMAZINE PO SCH (22:09)
[2016-12-03] MEDS: DIVALPROEX SODIUM 500 MG TABLET E.C. PO SCH (22:09)
[2016-12-04] MEDS: PIPERACILLIN/TAZOB 2.25 GM 50 ML IVPB SCH ×3 (02:28→17:32)
[2016-12-04] MEDS: INSULIN SLIDING SCALE (NOVOLOG) 1 VIAL SQ SCH ×4 (06:36→21:29)
[2016-12-04 08:42] LABS: CALCIUM 8.1 mg/dL (8.5-10.1); CREATININE 2.9 mg/dL (0.7-1.3)
[2016-12-04 08:44] LABS: ALBUMIN 2.1 g/dl (3.4-5.0)
[2016-12-04 08:46] LABS: BASOPHIL 0.5 % (0-2.0); MCH 31.1 pg (25.7-33.7); MCHC 34.1 g/dl (32.0-35.9); MEAN CELL VOLUME 91.1 fl (80-96); MEAN PLT VOLUME 7.5 fl (7.5-11.1); NEUTROPHILS 56.8 % (42.8-82.8); PLATELET COUNT 127 K/MM3 (134-434); RDW 16.7 % (11.9-15.9); WHITE BLOOD COUNT 7.2 K/mm3 (4.0-10.0)
[2016-12-04 08:50] LABS: BILIRUBIN,TOTAL 0.7 mg/dL (0.2-1.0); CREATININE 2.9 mg/dL (0.7-1.3); TOT PROT 6.3 g/dl (6.4-8.2); TROPONIN I 0.08 ng/ml (0.00-0.05)
[2016-12-04 09:40] LABS: THYROID STIMULATING HORMONE 15.8 uIU/ml (0.358-3.74)
[2016-12-04] MEDS: DIVALPROEX SODIUM 500 MG TABLET E.C. PO SCH ×2 (10:02→21:28)
[2016-12-04] MEDS: RAMIPRIL 2.5 MG CAPSULE (FP) PO SCH (10:02)
[2016-12-04] MEDS: DOCUSATE SODIUM 100 MG CAPSULE (FP) PO SCH ×2 (10:02→21:28)
[2016-12-04] MEDS: HEPARIN NA (PORCINE) 5,000 UNITS/ML 1ML VIAL SQ SCH ×2 (10:08→21:29)
[2016-12-04] MEDS: COLLAGENASE CLOSTRIDIUM HIST. 30 GRAMS TUBE TP SCH (10:08)
[2016-12-04] MEDS: TIMOLOL 0.5% OPHTHALMIC SOL 5 ML BOTTLE OU SCH ×2 (10:09→21:34)
[2016-12-04] MEDS: DORZOLAMIDE 2% HCL OPHTHALMIC SOLUTION 10 ML BOTTLE OU SCH ×2 (10:09→21:34)
[2016-12-04] MEDS ORDERED: VANCOMYCIN 1,000 MG in DEXTROSE 5%-WATER - 250 ML IVPB ONE (10:13)
--- NOTE | 2016-12-04 10:18 | PN ---
Progress Note, Physician History of Present Illness: No c/o leg pain No c/o fever/ chills Tolerating antibiotics Temps down- afebrile WBC improved- now WNL - Current Medication List Current Medications: Active Medications Acetaminophen (Tylenol -) 325 mg PO Q6H PRN Atorvastatin Calcium (Lipitor -) 10 mg PO HS [facility] Last Admin: 12/03/16 21:40 Dose: 10 mg Chlorpromazine HCl 100 mg/ (Chlorpromazine HCl 50 mg) 150 mg PO HS [facility] Last Admin: 12/03/16 22:09 Dose: 150 mg Clonazepam (Klonopin -) 1 mg PO Q6H PRN PRN Reason: AGITATION Last Admin: 12/04/16 08:05 Dose: 1 mg Collagenase (Santyl -) 1 applic TP DAILY [facility] Last Admin: 12/04/16 10:08 Dose: 1 applic Divalproex Sodium (Depakote -) 500 mg PO BID [facility] Last Admin: 12/04/16 10:02 Dose: 500 mg Docusate Sodium (Colace -) 100 mg PO BID [facility] Last Admin: 12/04/16 10:02 Dose: 100 mg Dorzolamide HCl (Trusopt 2%) 1 drop OU BID [facility] Last Admin: 12/04/16 10:09 Dose: 1 drop Heparin Sodium (Porcine) (Heparin -) 5,000 unit SQ BID [facility] Last Admin: 12/04/16 10:08 Dose: 5,000 unit Piperacillin Sod/Tazobactam Sod (Zosyn 2.25gm Ivpb (Pre-Docked)) 50 mls @ 100 mls/hr IVPB Q8H-IV [facility] Last Admin: 12/04/16 02:28 Dose: 100 mls/hr Sodium Chloride (Normal Saline -) 1,000 mls @ 65 mls/hr IV ASDIR [facility] Last Admin: 12/03/16 20:29 Dose: 65 mls/hr Vancomycin HCl 1,000 mg/ (Dextrose) 250 mls @ 200 mls/hr IVPB ONCE ONE Stop: 12/04/16 11:27 Insulin Aspart (Novolog Vial Sliding Scale -) 0 vial SQ ACHS [facility] PRN Reason: Protocol Last Admin: 12/04/16 06:36 Dose: Not Given Ramipril (Altace -) 2.5 mg PO DAILY [facility] Last Admin: 12/04/16 10:02 Dose: 2.5 mg Timolol Maleate (Timoptic 0.5%) 1 drop OU BID [facility] Last Admin: 12/04/16 10:09 Dose: 1 drop - Objective Vital Signs: Vital Signs Temperature 98.4 F 12/04/16 06:15 Pulse Rate 82 12/04/16 06:15 Respiratory Rate 20 12/04/16 06:15 Blood Pressure 106/63 12/04/16 06:15 O2 Sat by Pulse Oximetry (%) 98 12/03/16 20:32 Constitutional: Yes: No Distress Eyes: Yes: Conjunctiva Clear Cardiovascular: Yes: Regular Rate and Rhythm, S1, S2 Respiratory: Yes: CTA Bilaterally Gastrointestinal: Yes: Normal Bowel Sounds, Soft. No: Tenderness Extremities: Yes: Other (decreased erythema/ warmth L LE + dry ulcer , great toe ) Labs: CBC, BMP 12/04/16 07:00 12/04/16 07:00 INR, PTT INR 1.20 (0.82-1.09) H 12/02/16 18:18 Assessment/Plan Cellulitis L LE Non healing great toe ulcer Fever/ leukocytosis- improved Azotemia Await c/s Continue zosyn. Redose vancomycin
[2016-12-04] MEDS ORDERED: VANCOMYCIN 1 GRAM (PRE-DOCKED) 1,000 MG/250 ML BAG IVPB ONE ×2 (11:00→17:30)
--- NOTE | 2016-12-04 11:28 | PN ---
Progress Note, Physician History of Present Illness: Pt seen and examined at bedside. He is awake and appears comfortable. - Current Medication List Current Medications: Active Medications Acetaminophen (Tylenol -) 325 mg PO Q6H PRN Atorvastatin Calcium (Lipitor -) 10 mg PO HS [facility] Last Admin: 12/03/16 21:40 Dose: 10 mg Chlorpromazine HCl 100 mg/ (Chlorpromazine HCl 50 mg) 150 mg PO HS [facility] Last Admin: 12/03/16 22:09 Dose: 150 mg Clonazepam (Klonopin -) 1 mg PO Q6H PRN PRN Reason: AGITATION Last Admin: 12/04/16 08:05 Dose: 1 mg Collagenase (Santyl -) 1 applic TP DAILY [facility] Last Admin: 12/04/16 10:08 Dose: 1 applic Divalproex Sodium (Depakote -) 500 mg PO BID [facility] Last Admin: 12/04/16 10:02 Dose: 500 mg Docusate Sodium (Colace -) 100 mg PO BID [facility] Last Admin: 12/04/16 10:02 Dose: 100 mg Dorzolamide HCl (Trusopt 2%) 1 drop OU BID [facility] Last Admin: 12/04/16 10:09 Dose: 1 drop Heparin Sodium (Porcine) (Heparin -) 5,000 unit SQ BID [facility] Last Admin: 12/04/16 10:08 Dose: 5,000 unit Piperacillin Sod/Tazobactam Sod (Zosyn 2.25gm Ivpb (Pre-Docked)) 50 mls @ 100 mls/hr IVPB Q8H-IV [facility] Last Admin: 12/04/16 02:28 Dose: 100 mls/hr Sodium Chloride (Normal Saline -) 1,000 mls @ 65 mls/hr IV ASDIR [facility] Last Admin: 12/03/16 20:29 Dose: 65 mls/hr Insulin Aspart (Novolog Vial Sliding Scale -) 0 vial SQ ACHS [facility] PRN Reason: Protocol Last Admin: 12/04/16 06:36 Dose: Not Given Ramipril (Altace -) 2.5 mg PO DAILY [facility] Last Admin: 12/04/16 10:02 Dose: 2.5 mg Timolol Maleate (Timoptic 0.5%) 1 drop OU BID [facility] Last Admin: 12/04/16 10:09 Dose: 1 drop - Objective Vital Signs: Vital Signs Temperature 98.4 F 12/04/16 06:15 Pulse Rate 82 12/04/16 06:15 Respiratory Rate 20 12/04/16 06:15 Blood Pressure 106/63 12/04/16 06:15 O2 Sat by Pulse Oximetry (%) 98 12/03/16 20:32 Constitutional: Yes: Calm Eyes: Yes: Conjunctiva Clear HENT: Yes: Atraumatic Cardiovascular: Yes: S1, S2 Respiratory: Yes: CTA Bilaterally Gastrointestinal: Yes: Soft Genitourinary: Yes: WNL Musculoskeletal: Yes: WNL Edema: No Integumentary: Yes: Other (left leg cellulitis) Neurological: Yes: Oriented Psychiatric: Yes: Agitated Labs: CBC, BMP 12/04/16 07:00 12/04/16 07:00 INR, PTT INR 1.20 (0.82-1.09) H 12/02/16 18:18 Problem List - Problems (1) CHF (congestive heart failure) Code(s): I50.9 - HEART FAILURE, UNSPECIFIED (2) Chronic kidney disease Code(s): N18.9 - CHRONIC KIDNEY DISEASE, UNSPECIFIED Qualifiers: Chronic kidney disease stage: unspecified stage Qualified Code(s): N18.9 - Chronic kidney disease, unspecified (3) HTN (hypertension) Code(s): I10 - ESSENTIAL (PRIMARY) HYPERTENSION (4) LEDY (acute kidney injury) Code(s): N17.9 - ACUTE KIDNEY FAILURE, UNSPECIFIED (5) Bipolar 1 disorder Code(s): F31.9 - BIPOLAR DISORDER, UNSPECIFIED (6) Cellulitis of left lower leg Code(s): L03.116 - CELLULITIS OF LEFT LOWER LIMB (7) Diabetes mellitus type 2 in obese Code(s): E11.9 - TYPE 2 DIABETES MELLITUS WITHOUT COMPLICATIONS E66.9 - OBESITY, UNSPECIFIED (8) Hypothyroid Code(s): E03.9 - HYPOTHYROIDISM, UNSPECIFIED Qualifiers: Hypothyroidism type: acquired Qualified Code(s): E03.9 - Hypothyroidism, unspecified Assessment/Plan Current Medications Generic Name Dose Route Start Last Admin Trade Name Freq PRN Reason Stop Dose Admin Acetaminophen 325 mg 12/03/16 11:00 Tylenol - PO Q6H PRN Atorvastatin Calcium 10 mg 12/03/16 22:00 12/03/16 21:40 Lipitor - PO 10 mg HS [facility] Administration Chlorpromazine HCl 100 mg/ 150 mg 12/03/16 22:00 12/03/16 22:09 Chlorpromazine HCl 50 mg PO 150 mg HS [facility] Administration Clonazepam 1 mg 12/03/16 10:47 12/04/16 08:05 Klonopin - PO 1 mg Q6H PRN Administration AGITATION Collagenase 1 applic 12/04/16 10:00 12/04/16 10:08 Santyl - TP 1 applic DAILY [facility] Administration Divalproex Sodium 500 mg 12/03/16 22:00 12/04/16 10:02 Depakote - PO 500 mg BID [facility] Administration Docusate Sodium 100 mg 12/03/16 22:00 12/04/16 10:02 Colace - PO 100 mg BID [facility] Administration Dorzolamide HCl 1 drop 12/04/16 10:00 12/04/16 10:09 Trusopt 2% OU 1 drop BID [facility] Administration Heparin Sodium (Porcine) 5,000 unit 12/03/16 10:00 12/04/16 10:08 Heparin - SQ 5,000 unit BID [facility] Administration Piperacillin Sod/Tazobactam Sod 50 mls @ 100 mls/hr 12/03/16 12:30 12/04/16 02: 28 Zosyn 2.25gm Ivpb (Pre-Docked) IVPB 100 mls/hr Q8H-IV [facility] Administration Sodium Chloride 1,000 mls @ 65 mls/hr 12/03/16 18:30 12/03/16 20:29 Normal Saline - IV 65 mls/hr ASDIR [facility] Administration Insulin Aspart 0 vial 12/03/16 16:30 12/04/16 06:36 Novolog Vial Sliding Scale - SQ Not Given ACHS [facility] Protocol Ramipril 2.5 mg 12/04/16 10:00 12/04/16 10:02 Altace - PO 2.5 mg DAILY [facility] Administration Timolol Maleate 1 drop 12/04/16 10:00 12/04/16 10:09 Timoptic 0.5% OU 1 drop BID [facility] Administration Impression 1. CKD 2. DM 3. sepsis 4. cellulitis 5. bipolar 6. schizophrenia 7. 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
[2016-12-04] MEDS: SODIUM CHLORIDE 1,000 ML IV SCH (19:30)
--- NOTE | 2016-12-04 19:38 | PN ---
Progress Note, Physician - Current Medication List Current Medications: Active Medications Acetaminophen (Tylenol -) 325 mg PO Q6H PRN Atorvastatin Calcium (Lipitor -) 10 mg PO HS [facility] Last Admin: 12/03/16 21:40 Dose: 10 mg Chlorpromazine HCl 100 mg/ (Chlorpromazine HCl 50 mg) 150 mg PO HS [facility] Last Admin: 12/03/16 22:09 Dose: 150 mg Clonazepam (Klonopin -) 1 mg PO Q6H PRN PRN Reason: AGITATION Last Admin: 12/04/16 08:05 Dose: 1 mg Collagenase (Santyl -) 1 applic TP DAILY [facility] Last Admin: 12/04/16 10:08 Dose: 1 applic Divalproex Sodium (Depakote -) 500 mg PO BID [facility] Last Admin: 12/04/16 10:02 Dose: 500 mg Docusate Sodium (Colace -) 100 mg PO BID [facility] Last Admin: 12/04/16 10:02 Dose: 100 mg Dorzolamide HCl (Trusopt 2%) 1 drop OU BID [facility] Last Admin: 12/04/16 10:09 Dose: 1 drop Heparin Sodium (Porcine) (Heparin -) 5,000 unit SQ BID [facility] Last Admin: 12/04/16 10:08 Dose: 5,000 unit Piperacillin Sod/Tazobactam Sod (Zosyn 2.25gm Ivpb (Pre-Docked)) 50 mls @ 100 mls/hr IVPB Q8H-IV [facility] Last Admin: 12/04/16 17:32 Dose: 100 mls/hr Sodium Chloride (Normal Saline -) 1,000 mls @ 45 mls/hr IV ASDIR [facility] Insulin Aspart (Novolog Vial Sliding Scale -) 0 vial SQ ACHS [facility] PRN Reason: Protocol Last Admin: 12/04/16 17:27 Dose: 8 units Ramipril (Altace -) 2.5 mg PO DAILY [facility] Last Admin: 12/04/16 10:02 Dose: 2.5 mg Timolol Maleate (Timoptic 0.5%) 1 drop OU BID [facility] Last Admin: 12/04/16 10:09 Dose: 1 drop - Objective Vital Signs: Vital Signs Temperature 97.3 F L 12/04/16 16:15 Pulse Rate 77 12/04/16 16:15 Respiratory Rate 20 01/19/17 16:15 Blood Pressure 115/68 12/04/16 16:15 O2 Sat by Pulse Oximetry (%) 98 12/03/16 20:32 Cardiovascular: Yes: WNL Respiratory: Yes: WNL Gastrointestinal: Yes: WNL Labs: CBC, BMP 12/04/16 07:00 12/04/16 07:00 INR, PTT INR 1.20 (0.82-1.09) H 12/02/16 18:18 Problem List - Problems (1) LEDY (acute kidney injury) Code(s): N17.9 - ACUTE KIDNEY FAILURE, UNSPECIFIED (2) Bipolar 1 disorder Code(s): F31.9 - BIPOLAR DISORDER, UNSPECIFIED (3) Chronic kidney disease Code(s): N18.9 - CHRONIC KIDNEY DISEASE, UNSPECIFIED Qualifiers: Chronic kidney disease stage: unspecified stage Qualified Code(s): N18.9 - Chronic kidney disease, unspecified (4) Diabetes Code(s): E11.9 - TYPE 2 DIABETES MELLITUS WITHOUT COMPLICATIONS Qualifiers: Diabetes mellitus type: type 2 Diabetes mellitus complication status: without complication (5) Fever Code(s): R50.9 - FEVER, UNSPECIFIED Qualifiers: Fever type: unspecified Qualified Code(s): R50.9 - Fever, unspecified (6) Hypothyroid Code(s): E03.9 - HYPOTHYROIDISM, UNSPECIFIED Qualifiers: Hypothyroidism type: acquired Qualified Code(s): E03.9 - Hypothyroidism, unspecified (7) Sepsis Code(s): A41.9 - SEPSIS, UNSPECIFIED ORGANISM Qualifiers: Sepsis type: sepsis due to unspecified organism Qualified Code(s): A41.9 - Sepsis, unspecified organism (8) Weakness Code(s): R53.1 - WEAKNESS (9) HTN (hypertension) Code(s): I10 - ESSENTIAL (PRIMARY) HYPERTENSION (10) CHF (congestive heart failure) Code(s): I50.9 - HEART FAILURE, UNSPECIFIED (11) Psychosis Code(s): F29 - UNSP PSYCHOSIS NOT DUE TO A SUBSTANCE OR KNOWN PHYSIOL COND Assessment/Plan The patient is a 46 year old male with past medical history of IDDM, CHF, CKD, hypothyroidism, bipolar disorder, and schizophrenia who arrives to the ED via EMS from the [address] [place] [address] with complaints of fever, chills, and weakness that began today. At the clinic, the patient was noted to be hypotensive with bp of 70/40. The patient also complains of a dry cough which began three days ago and states that he has become increasingly weak since this morning. He has also complained of urinary urgency, stating he has had a few accidents today. He denies any nausea, vomiting diarrhea. He denies chest pain or shortness of breath. He denies any other urinary symptoms. As per EMS, the patient recently left [facility] last week and has since been living on his own, with a nurse visiting during the day. He reports being compliant with his medications and took his insulin this morning. PCP: Rey Pitts (1) LEDY (acute kidney injury) Code(s): N17.9 - ACUTE KIDNEY FAILURE, UNSPECIFIED H/O CKD Cr AT BASELINE RENAL CONSULT APPRECIATED (2) Bipolar 1 disorder Code(s): F31.9 - BIPOLAR DISORDER, UNSPECIFIED FROM [facility] Rx RESUMED (3) Chronic kidney disease Code(s): N18.9 - CHRONIC KIDNEY DISEASE, UNSPECIFIED Qualifiers: Chronic kidney disease stage: unspecified stage Qualified Code(s): N18.9 - Chronic kidney disease, unspecified (4) Diabetes Code(s): E11.9 - TYPE 2 DIABETES MELLITUS WITHOUT COMPLICATIONS Qualifiers: Diabetes mellitus type: type 2 Diabetes mellitus complication status: without complication BGM ISS (5) Fever Code(s): R50.9 - FEVER, UNSPECIFIED Qualifiers: Fever type: unspecified Qualified Code(s): R50.9 - Fever, unspecified CXr NAD F/U CULTURES -> NEG ID CONSULT APPRECIATED L #1 TOE ULCER + LLE CELLULITIS DR BONNER ON CASE -> F/U L #1 TOE MRI TO R/O OM (6) Hypothyroid Code(s): E03.9 - HYPOTHYROIDISM, UNSPECIFIED Qualifiers: Hypothyroidism type: acquired Qualified Code(s): E03.9 - Hypothyroidism, unspecified TSH HIGH -> SYNTHROID RESTARTED (7) Sepsis Code(s): A41.9 - SEPSIS, UNSPECIFIED ORGANISM Qualifiers: Sepsis type: sepsis due to unspecified organism Qualified Code(s): A41.9 - Sepsis, unspecified organism (8) Weakness Code(s): R53.1 - WEAKNESS R/O SEPSIS (9) HTN (hypertension) Code(s): I10 - ESSENTIAL (PRIMARY) HYPERTENSION (10) CHF (congestive heart failure) Code(s): I50.9 - HEART FAILURE, UNSPECIFIED CXr NAD TROP NEG x 1 -> F/U - BNP (11) Psychosis Code(s): F29 - UNSP PSYCHOSIS NOT DUE TO A SUBSTANCE OR KNOWN PHYSIOL 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
[2016-12-04 21:17] LABS: URINE CREATININE 33.3 mg/dL
[2016-12-04] MEDS: ATORVASTATIN CA 10 MG TABLET (FP) PO SCH (21:28)
[2016-12-04] MEDS: CHLORPROMAZINE PO SCH (21:30)
[2016-12-04] MEDS ORDERED: INSULIN (NOVOLOG) ASPART 100 UNITS/ML 10ML VIAL ONE (22:09)
[2016-12-05] MEDS: PIPERACILLIN/TAZOB 2.25 GM 50 ML IVPB SCH ×2 (01:09→10:00)
[2016-12-05] MEDS: SODIUM CHLORIDE 1,000 ML IV SCH (06:30)
[2016-12-05] MEDS: INSULIN SLIDING SCALE (NOVOLOG) 1 VIAL SQ SCH ×4 (06:30→23:10)
[2016-12-05 08:30] LABS: BASOPHIL 0.6 % (0-2.0); EOSINOPHIL 1.7 % (0-4.5); MCH 31.3 pg (25.7-33.7); MCHC 34.3 g/dl (32.0-35.9); MEAN PLT VOLUME 7.9 fl (7.5-11.1); NEUTROPHILS 45.3 % (42.8-82.8); PLATELET COUNT 118 K/MM3 (134-434); RDW 16.9 % (11.9-15.9); WHITE BLOOD COUNT 5.9 K/mm3 (4.0-10.0)
[2016-12-05 09:07] LABS: CREATININE 2.6 mg/dL (0.7-1.3)
[2016-12-05] MEDS: RAMIPRIL 2.5 MG CAPSULE (FP) PO SCH (09:52)
[2016-12-05] MEDS: DIVALPROEX SODIUM 500 MG TABLET E.C. PO SCH ×2 (09:52→23:10)
[2016-12-05] MEDS: HEPARIN NA (PORCINE) 5,000 UNITS/ML 1ML VIAL SQ SCH ×2 (09:52→23:10)
[2016-12-05] MEDS: TIMOLOL 0.5% OPHTHALMIC SOL 5 ML BOTTLE OU SCH ×2 (09:59→23:11)
[2016-12-05] MEDS: COLLAGENASE CLOSTRIDIUM HIST. 30 GRAMS TUBE TP SCH (09:59)
[2016-12-05] MEDS: DORZOLAMIDE 2% HCL OPHTHALMIC SOLUTION 10 ML BOTTLE OU SCH ×2 (10:00→23:11)
--- NOTE | 2016-12-05 10:41 | PN ---
Progress Note, Physician - Current Medication List Current Medications: Active Medications Acetaminophen (Tylenol -) 325 mg PO Q6H PRN Atorvastatin Calcium (Lipitor -) 10 mg PO HS [facility] Last Admin: 12/04/16 21:28 Dose: 10 mg Chlorpromazine HCl 100 mg/ (Chlorpromazine HCl 50 mg) 150 mg PO HS [facility] Last Admin: 12/04/16 21:30 Dose: 150 mg Clonazepam (Klonopin -) 1 mg PO Q6H PRN PRN Reason: AGITATION Last Admin: 12/04/16 08:05 Dose: 1 mg Collagenase (Santyl -) 1 applic TP DAILY [facility] Last Admin: 12/05/16 09:59 Dose: 1 applic Divalproex Sodium (Depakote -) 500 mg PO BID [facility] Last Admin: 12/05/16 09:52 Dose: 500 mg Docusate Sodium (Colace -) 100 mg PO BID [facility] Last Admin: 12/04/16 21:28 Dose: Not Given Dorzolamide HCl (Trusopt 2%) 1 drop OU BID [facility] Last Admin: 12/05/16 10:00 Dose: 1 drop Heparin Sodium (Porcine) (Heparin -) 5,000 unit SQ BID [facility] Last Admin: 12/05/16 09:52 Dose: 5,000 unit Piperacillin Sod/Tazobactam Sod (Zosyn 2.25gm Ivpb (Pre-Docked)) 50 mls @ 100 mls/hr IVPB Q8H-IV [facility] Last Admin: 12/05/16 10:00 Dose: 100 mls/hr Sodium Chloride (Normal Saline -) 1,000 mls @ 45 mls/hr IV ASDIR [facility] Last Admin: 12/05/16 06:30 Dose: 45 mls/hr Insulin Aspart (Novolog Vial Sliding Scale -) 0 vial SQ ACHS [facility] PRN Reason: Protocol Last Admin: 12/05/16 06:30 Dose: 4 units Ramipril (Altace -) 2.5 mg PO DAILY [facility] Last Admin: 12/05/16 09:52 Dose: 2.5 mg Timolol Maleate (Timoptic 0.5%) 1 drop OU BID [facility] Last Admin: 12/05/16 09:59 Dose: 1 drop - Objective Vital Signs: Vital Signs Temperature 97.9 F 12/05/16 05:00 Pulse Rate 72 12/05/16 05:00 Respiratory Rate 24 12/05/16 05:00 Blood Pressure 110/58 12/05/16 05:00 O2 Sat by Pulse Oximetry (%) 100 12/04/16 20:04 Labs: CBC, BMP 12/05/16 07:15 12/05/16 07:15 INR, PTT INR 1.20 (0.82-1.09) H 12/02/16 18:18 Problem List - Problems (1) LEDY (acute kidney injury) Code(s): N17.9 - ACUTE KIDNEY FAILURE, UNSPECIFIED (2) Bipolar 1 disorder Code(s): F31.9 - BIPOLAR DISORDER, UNSPECIFIED (3) Chronic kidney disease Code(s): N18.9 - CHRONIC KIDNEY DISEASE, UNSPECIFIED Qualifiers: Qualified Code(s): N18.9 - Chronic kidney disease, unspecified (4) Diabetes Code(s): E11.9 - TYPE 2 DIABETES MELLITUS WITHOUT COMPLICATIONS (5) Fever Code(s): R50.9 - FEVER, UNSPECIFIED Qualifiers: Qualified Code(s): R50.9 - Fever, unspecified (6) Hypothyroid Code(s): E03.9 - HYPOTHYROIDISM, UNSPECIFIED Qualifiers: Qualified Code(s): E03.9 - Hypothyroidism, unspecified (7) Sepsis Code(s): A41.9 - SEPSIS, UNSPECIFIED ORGANISM Qualifiers: Qualified Code(s): A41.9 - Sepsis, unspecified organism (8) Weakness Code(s): R53.1 - WEAKNESS (9) HTN (hypertension) Code(s): I10 - ESSENTIAL (PRIMARY) HYPERTENSION (10) CHF (congestive heart failure) Code(s): I50.9 - HEART FAILURE, UNSPECIFIED (11) Psychosis Code(s): F29 - UNSP PSYCHOSIS NOT DUE TO A SUBSTANCE OR KNOWN PHYSIOL COND Assessment/Plan The patient is a 46 year old male with past medical history of IDDM, CHF, CKD, hypothyroidism, bipolar disorder, and schizophrenia who arrives to the ED via EMS from the [address] [place] [address] with complaints of fever, chills, and weakness that began today. At the clinic, the patient was noted to be hypotensive with bp of 70/40. The patient also complains of a dry cough which began three days ago and states that he has become increasingly weak since this morning. He has also complained of urinary urgency, stating he has had a few accidents today. He denies any nausea, vomiting diarrhea. He denies chest pain or shortness of breath. He denies any other urinary symptoms. As per EMS, the patient recently left [facility] last week and has since been living on his own, with a nurse visiting during the day. He reports being compliant with his medications and took his insulin this morning. PCP: Rey Pitts (1) LEDY (acute kidney injury) Code(s): N17.9 - ACUTE KIDNEY FAILURE, UNSPECIFIED H/O CKD Cr AT BASELINE RENAL CONSULT APPRECIATED (2) Bipolar 1 disorder Code(s): F31.9 - BIPOLAR DISORDER, UNSPECIFIED FROM [facility] Rx RESUMED (3) Chronic kidney disease Code(s): N18.9 - CHRONIC KIDNEY DISEASE, UNSPECIFIED Qualifiers: Chronic kidney disease stage: unspecified stage Qualified Code(s): N18.9 - Chronic kidney disease, unspecified (4) Diabetes Code(s): E11.9 - TYPE 2 DIABETES MELLITUS WITHOUT COMPLICATIONS Qualifiers: Diabetes mellitus type: type 2 Diabetes mellitus complication status: without complication BGM ISS (5) Fever Code(s): R50.9 - FEVER, UNSPECIFIED Qualifiers: Fever type: unspecified Qualified Code(s): R50.9 - Fever, unspecified CXr NAD F/U CULTURES -> NEG ID CONSULT APPRECIATED L #1 TOE ULCER + LLE CELLULITIS DR BONNER ON CASE -> F/U L #1 TOE MRI TO R/O OM (6) Hypothyroid Code(s): E03.9 - HYPOTHYROIDISM, UNSPECIFIED Qualifiers: Hypothyroidism type: acquired Qualified Code(s): E03.9 - Hypothyroidism, unspecified TSH HIGH -> SYNTHROID RESTARTED (7) Sepsis Code(s): A41.9 - SEPSIS, UNSPECIFIED ORGANISM Qualifiers: Sepsis type: sepsis due to unspecified organism Qualified Code(s): A41.9 - Sepsis, unspecified organism (8) Weakness Code(s): R53.1 - WEAKNESS R/O SEPSIS (9) HTN (hypertension) Code(s): I10 - ESSENTIAL (PRIMARY) HYPERTENSION (10) CHF (congestive heart failure) Code(s): I50.9 - HEART FAILURE, UNSPECIFIED CXr NAD TROP NEG x 1 -> F/U - BNP (11) Psychosis Code(s): F29 - UNSP PSYCHOSIS NOT DUE TO A SUBSTANCE OR KNOWN PHYSIOL 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
--- NOTE | 2016-12-05 10:46 | PN ---
Progress Note, Physician Chief Complaint: AWAKE ALERT NAD TOLERATING IV ABX - Current Medication List Current Medications: Active Medications Acetaminophen (Tylenol -) 325 mg PO Q6H PRN Atorvastatin Calcium (Lipitor -) 10 mg PO HS [facility] Last Admin: 12/04/16 21:28 Dose: 10 mg Chlorpromazine HCl 100 mg/ (Chlorpromazine HCl 50 mg) 150 mg PO HS [facility] Last Admin: 12/04/16 21:30 Dose: 150 mg Clonazepam (Klonopin -) 1 mg PO Q6H PRN PRN Reason: AGITATION Last Admin: 12/04/16 08:05 Dose: 1 mg Collagenase (Santyl -) 1 applic TP DAILY [facility] Last Admin: 12/05/16 09:59 Dose: 1 applic Divalproex Sodium (Depakote -) 500 mg PO BID [facility] Last Admin: 12/05/16 09:52 Dose: 500 mg Docusate Sodium (Colace -) 100 mg PO BID [facility] Last Admin: 12/04/16 21:28 Dose: Not Given Dorzolamide HCl (Trusopt 2%) 1 drop OU BID [facility] Last Admin: 12/05/16 10:00 Dose: 1 drop Heparin Sodium (Porcine) (Heparin -) 5,000 unit SQ BID [facility] Last Admin: 12/05/16 09:52 Dose: 5,000 unit Piperacillin Sod/Tazobactam Sod (Zosyn 2.25gm Ivpb (Pre-Docked)) 50 mls @ 100 mls/hr IVPB Q8H-IV [facility] Last Admin: 12/05/16 10:00 Dose: 100 mls/hr Sodium Chloride (Normal Saline -) 1,000 mls @ 45 mls/hr IV ASDIR [facility] Last Admin: 12/05/16 06:30 Dose: 45 mls/hr Insulin Aspart (Novolog Vial Sliding Scale -) 0 vial SQ ACHS [facility] PRN Reason: Protocol Last Admin: 12/05/16 06:30 Dose: 4 units Ramipril (Altace -) 2.5 mg PO DAILY [facility] Last Admin: 12/05/16 09:52 Dose: 2.5 mg Timolol Maleate (Timoptic 0.5%) 1 drop OU BID [facility] Last Admin: 12/05/16 09:59 Dose: 1 drop - Objective Vital Signs: Vital Signs Temperature 97.9 F 12/05/16 05:00 Pulse Rate 72 12/05/16 05:00 Respiratory Rate 24 12/05/16 05:00 Blood Pressure 110/58 12/05/16 05:00 O2 Sat by Pulse Oximetry (%) 100 12/04/16 20:04 Constitutional: Yes: Mild Distress Eyes: Yes: WNL HENT: Yes: WNL Neck: Yes: WNL Cardiovascular: Yes: WNL Respiratory: Yes: WNL Gastrointestinal: Yes: WNL Genitourinary: Yes: WNL Musculoskeletal: Yes: WNL Extremities: Yes: Erythema Edema: No Peripheral Pulses WNL: Yes Integumentary: Yes: Erythema, Venous Stasis Changes Wound/Incision: Yes: Open to air, Dressing Dry and Intact Neurological: Yes: WNL ...Motor Strength: WNL Psychiatric: Yes: WNL Labs: CBC, BMP 12/05/16 07:15 12/05/16 07:15 INR, PTT INR 1.20 (0.82-1.09) H 12/02/16 18:18 Problem List - Problems (1) Chronic kidney disease Code(s): N18.9 - CHRONIC KIDNEY DISEASE, UNSPECIFIED Qualifiers: Chronic kidney disease stage: unspecified stage Qualified Code(s): N18.9 - Chronic kidney disease, unspecified (2) Controlled type 1 diabetes mellitus with peripheral vascular disease Code(s): E10.51 - TYPE 1 DIABETES W DIABETIC PERIPHERAL ANGIOPATH W/O GANGRENE (3) Fever Code(s): R50.9 - FEVER, UNSPECIFIED Qualifiers: Fever type: unspecified Qualified Code(s): R50.9 - Fever, unspecified (4) HTN (hypertension) Code(s): I10 - ESSENTIAL (PRIMARY) HYPERTENSION (5) Left leg cellulitis Code(s): L03.116 - CELLULITIS OF LEFT LOWER LIMB (6) Psychosis Code(s): F29 - UNSP PSYCHOSIS NOT DUE TO A SUBSTANCE OR KNOWN PHYSIOL COND (7) Weakness Code(s): R53.1 - WEAKNESS Assessment/Plan IV ABX PER ID RENAL FOLLOW UP PT EVAL SSI BGM
[2016-12-05] MEDS: DOCUSATE SODIUM 100 MG CAPSULE (FP) PO SCH ×2 (11:20→23:00)
[2016-12-05] MEDS ORDERED: VANCOMYCIN 1,000 MG in DEXTROSE 5%-WATER - 250 ML IVPB ONE (14:44)
--- NOTE | 2016-12-05 14:51 | PN ---
Progress Note, Physician History of Present Illness: No c/o foot/leg pain Temps down- afebrile WBC improved - Current Medication List Current Medications: Active Medications Acetaminophen (Tylenol -) 325 mg PO Q6H PRN Atorvastatin Calcium (Lipitor -) 10 mg PO HS [facility] Last Admin: 12/04/16 21:28 Dose: 10 mg Chlorpromazine HCl 100 mg/ (Chlorpromazine HCl 50 mg) 150 mg PO HS [facility] Last Admin: 12/04/16 21:30 Dose: 150 mg Clonazepam (Klonopin -) 1 mg PO Q6H PRN PRN Reason: AGITATION Last Admin: 12/04/16 08:05 Dose: 1 mg Collagenase (Santyl -) 1 applic TP DAILY [facility] Last Admin: 12/05/16 09:59 Dose: 1 applic Divalproex Sodium (Depakote -) 500 mg PO BID [facility] Last Admin: 12/05/16 09:52 Dose: 500 mg Docusate Sodium (Colace -) 100 mg PO BID [facility] Last Admin: 12/05/16 11:20 Dose: 100 mg Dorzolamide HCl (Trusopt 2%) 1 drop OU BID [facility] Last Admin: 12/05/16 10:00 Dose: 1 drop Heparin Sodium (Porcine) (Heparin -) 5,000 unit SQ BID [facility] Last Admin: 12/05/16 09:52 Dose: 5,000 unit Sodium Chloride (Normal Saline -) 1,000 mls @ 45 mls/hr IV ASDIR [facility] Last Admin: 12/05/16 06:30 Dose: 45 mls/hr Vancomycin HCl 1,000 mg/ (Dextrose) 250 mls @ 200 mls/hr IVPB ONCE ONE Stop: 12/05/16 15:58 Insulin Aspart (Novolog Vial Sliding Scale -) 0 vial SQ ACHS [facility] PRN Reason: Protocol Last Admin: 12/05/16 11:19 Dose: 6 units Levothyroxine Sodium (Synthroid -) 50 mcg PO DAILY@0700 [facility] Ramipril (Altace -) 2.5 mg PO DAILY [facility] Last Admin: 12/05/16 09:52 Dose: 2.5 mg Timolol Maleate (Timoptic 0.5%) 1 drop OU BID [facility] Last Admin: 12/05/16 09:59 Dose: 1 drop - Objective Vital Signs: Vital Signs Temperature 97.9 F 12/05/16 05:00 Pulse Rate 72 12/05/16 05:00 Respiratory Rate 24 12/05/16 05:00 Blood Pressure 110/58 12/05/16 05:00 O2 Sat by Pulse Oximetry (%) 100 12/04/16 20:04 Constitutional: Yes: No Distress Eyes: Yes: Conjunctiva Clear Cardiovascular: Yes: Regular Rate and Rhythm, S1, S2 Respiratory: Yes: CTA Bilaterally Gastrointestinal: Yes: Normal Bowel Sounds, Soft. No: Tenderness Extremities: Yes: Other (decreased L LE erythema/warmth dry ulcer, great toe) Labs: CBC, BMP 12/05/16 07:15 12/05/16 07:15 INR, PTT INR 1.20 (0.82-1.09) H 12/02/16 18:18 Assessment/Plan Cellulitis L LE- improving Non healing great toe ulcer Fever/ leukocytosis- improved Azotemia Continue zosyn. Redose vancomycin
[2016-12-05] MEDS ORDERED: VANCOMYCIN 1 GRAM (PRE-DOCKED) 1,000 MG/250 ML BAG IVPB ONE (15:30)
--- NOTE | 2016-12-05 15:33 | CONSULT ---
Consult Consult Specialty:: Cardiology Referred by:: Dr De La Vega Reason for Consultation:: Elevated troponin I - History of Present Illness Chief Complaint: Fevers, chills, weakness History of Present Illness: 45 yo male, with a history of tobacco use, HTN, HLD, DM, CKD, bipolar/ schizophrenia, pneumonia in 09/30 and 10/30, cellulitis, admitted here in 07/01 with fevers and vomiting -> tachycardic and hypotensive to 80s-890s/50s -> found with BNP > 6000 but no CHF, has been followed by Dr Ribeiro in wound clinic for left great toe ulcer, here from clinic with fevers/chills/weakness/ hypotension to 70/40 -. found febrile to 103.4, felt to be from left leg cellulitis. Initial trop I on 12/02/16 was normal at 0.05. Trop I yesterday AM was 0.08. It 'ss not clear why this was drawn. Patient denies CP prior to presentation or since. Currently, he has no CP, SOB, palpitations or dizziness. - History Source History Provided By: Patient - Past Medical History EFFICIENCY EXPERT: Yes: Other (DEPRESSION/FLAT AFFECT) Cardio/Vascular: Yes: HTN, Hyperlipdemia, Other (ST with short run of PSVT in -> echo was nl ) Renal/: Yes: Renal Inusuff, Other (CKD) Psych: Yes: Bipolar Endocrine: Yes: Diabetes Mellitus, Hypothyroidism - Past Surgical History Past Surgical History: Yes: None - Alcohol/Substance Use Hx Alcohol Use: No - Smoking History Smoking history: Current every day smoker Have you smoked in the past 12 months: No Aproximately how many cigarettes per day: 10 - Social History Usual Living Arrangement: Shelter History of Recent Travel: No Home Medications - Allergies Allergies/Adverse Reactions: Allergies Allergy/AdvReac Type Severity Reaction Status Date / Time No Known Allergies Allergy Verified 07/06/16 08:47 - Home Medications Home Medications: Ambulatory Orders Acetaminophen [Tylenol] 325 mg PO PRN 12/02/16 Chlorpromazine [Thorazine -] 150 mg PO HS 12/02/16 Clonazepam [Klonopin] 1 mg PO HS 12/02/16 Collagenase Clostridium Hist. [Santyl] 1 applic TP DAILY 12/02/16 Divalproex [Depakote -] 500 mg PO BID 12/02/16 Docusate Sodium [Colace -] 100 mg PO BID 12/02/16 Dorzolamide HCl [Trusopt 2%] 1 drop OD BID 12/02/16 Fenofibric Acid (Choline) [Fenofibric Acid] 135 mg PO DAILY 12/02/16 Guaifenesin [Robitussin] 100 mg PO PRN 12/02/16 Hydrocodone/Acetaminophen [[place] 7.5-325 Tablet] 1 each PO Q8H 12/02/16 Insulin (Novolog) [Novolog] 0 units SQ PRN 12/02/16 Insulin Glargine,Hum.rec.anlog [Lantus (nf)] 0 units SQ DAILY 12/02/16 Insulin Lispro [Humalog] 100 unit SQ ASDIR 12/02/16 Ketoconazole 2% Shampoo [Nizoral 2% Shampoo -] 1 applic TP ASDIR 12/02/16 Linagliptin [Tradjenta] 5 mg PO DAILY 12/02/16 Lorazepam [Ativan] 1 mg PO PRN 12/02/16 Magnesium Hydroxide [Milk of Magnesia] 400 mg PO PRN 12/02/16 Na Phos,M-B/Na Phos,Di-Ba [Fleet Enema] 133 ml RC PRN 12/02/16 Ramipril [Altace] 2.5 mg PO DAILY 12/02/16 Selenium Sulfide [Selenium Sulfide 2.25% Shampoo] 1 applic TP ASDIR 12/02/16 Simvastatin [Zocor -] 20 mg PO HS 12/02/16 Timolol 0.5% [Timoptic 0.5%] 1 drop OD BID 12/02/16 Family Disease History - Family Disease History Family History: Denies (premature CAD) Family Disease History: Diabetes: Father Review of Systems - Review of Systems Constitutional: reports: Fever Eyes: reports: No Symptoms HENT: reports: No Symptoms Neck: reports: No Symptoms Cardiovascular: reports: No Symptoms Respiratory: reports: Cough Gastrointestinal: reports: No Symptoms Genitourinary: reports: No Symptoms Neurological: reports: No Symptoms Psychiatric: reports: Depression Physical Exam Vital Signs: Vital Signs Temperature 97.9 F 12/05/16 05:00 Pulse Rate 72 12/05/16 05:00 Respiratory Rate 24 12/05/16 05:00 Blood Pressure 110/58 12/05/16 05:00 O2 Sat by Pulse Oximetry (%) 100 12/04/16 20:04 Constitutional: Yes: No Distress Eyes: Yes: Conjunctiva Clear HENT: Yes: Atraumatic Neck: Yes: Supple Cardiovascular: Yes: Regular Rate and Rhythm. No: Murmur Respiratory: Yes: CTA Bilaterally Gastrointestinal: Yes: Normal Bowel Sounds, Soft. No: Tenderness Extremities: Yes: Other (warm) Edema: Yes (trivial on the left with) Peripheral Pulses WNL: Yes Neurological: Yes: Alert, Oriented Psychiatric: Yes: Alert, Oriented Labs: CBC, BMP 12/05/16 07:15 12/05/16 07:15 Imaging - Results Chest X-ray: Report Reviewed, Image Reviewed EKG: Report Reviewed, Image Reviewed Other: Other (Echo (09/30) -. nl EF, mild MAC/MR) Assessment/Plan 46 yo male with the above history, here with fevers/chills/weakness/hypotension -. found with left leg cellulitis Initial trop I was negative at 0.05 on 12/02/16. Trop from yesterday AM was 0.08. Pt has no symptoms. EKG on 12/02 was w/o acute ischemic changes. In addition the trop of 0.08 is in the setting of renal dysfunction I doudt ACS The BNP is also elevated to 2378. But in 06/30, it was > 6000, w/o CHF. No evidence of CHF now either EF was nl in 09/30 Elevated TSH Rec: Check a 3rd trop I now , since the 2nd yesterday was higher EKG in AM Continue AKIKO-I (ok with GI) Cont lipitor DM management Check full thryroid panel -. address accordingly Thanks! We'll follow!
--- NOTE | 2016-12-05 17:00 | PN ---
Progress Note, Physician History of Present Illness: Pt seen and examined at bedside. He is awake however he is anxious. - Current Medication List Current Medications: Active Medications Acetaminophen (Tylenol -) 325 mg PO Q6H PRN Atorvastatin Calcium (Lipitor -) 10 mg PO HS [facility] Last Admin: 12/04/16 21:28 Dose: 10 mg Chlorpromazine HCl 100 mg/ (Chlorpromazine HCl 50 mg) 150 mg PO HS [facility] Last Admin: 12/04/16 21:30 Dose: 150 mg Clonazepam (Klonopin -) 1 mg PO Q6H PRN PRN Reason: AGITATION Last Admin: 12/04/16 08:05 Dose: 1 mg Collagenase (Santyl -) 1 applic TP DAILY [facility] Last Admin: 12/05/16 09:59 Dose: 1 applic Divalproex Sodium (Depakote -) 500 mg PO BID [facility] Last Admin: 12/05/16 09:52 Dose: 500 mg Docusate Sodium (Colace -) 100 mg PO BID [facility] Last Admin: 12/05/16 11:20 Dose: 100 mg Dorzolamide HCl (Trusopt 2%) 1 drop OU BID [facility] Last Admin: 12/05/16 10:00 Dose: 1 drop Heparin Sodium (Porcine) (Heparin -) 5,000 unit SQ BID [facility] Last Admin: 12/05/16 09:52 Dose: 5,000 unit Sodium Chloride (Normal Saline -) 1,000 mls @ 45 mls/hr IV ASDIR [facility] Last Admin: 12/05/16 06:30 Dose: 45 mls/hr Insulin Aspart (Novolog Vial Sliding Scale -) 0 vial SQ ACHS [facility] PRN Reason: Protocol Last Admin: 12/05/16 16:49 Dose: 10 units Levothyroxine Sodium (Synthroid -) 50 mcg PO DAILY@0700 [facility] Ramipril (Altace -) 2.5 mg PO DAILY [facility] Last Admin: 12/05/16 09:52 Dose: 2.5 mg Timolol Maleate (Timoptic 0.5%) 1 drop OU BID [facility] Last Admin: 12/05/16 09:59 Dose: 1 drop - Objective Vital Signs: Vital Signs Temperature 98.1 F 12/05/16 15:36 Pulse Rate 85 12/05/16 15:36 Respiratory Rate 24 12/05/16 05:00 Blood Pressure 110/58 12/05/16 05:00 O2 Sat by Pulse Oximetry (%) 100 12/04/16 20:04 Constitutional: Yes: Calm Eyes: Yes: Conjunctiva Clear HENT: Yes: Atraumatic Neck: Yes: Supple Cardiovascular: Yes: S1, S2 Respiratory: Yes: CTA Bilaterally Genitourinary: Yes: WNL Musculoskeletal: Yes: WNL Edema: No Integumentary: Yes: Other (left leg cellulitis) Psychiatric: Yes: Agitated Labs: CBC, BMP 12/05/16 07:15 12/05/16 07:15 INR, PTT INR 1.20 (0.82-1.09) H 12/02/16 18:18 Problem List - Problems (1) CHF (congestive heart failure) Code(s): I50.9 - HEART FAILURE, UNSPECIFIED (2) Chronic kidney disease Code(s): N18.9 - CHRONIC KIDNEY DISEASE, UNSPECIFIED Qualifiers: Chronic kidney disease stage: unspecified stage Qualified Code(s): N18.9 - Chronic kidney disease, unspecified (3) HTN (hypertension) Code(s): I10 - ESSENTIAL (PRIMARY) HYPERTENSION (4) LEDY (acute kidney injury) Code(s): N17.9 - ACUTE KIDNEY FAILURE, UNSPECIFIED (5) Bipolar 1 disorder Code(s): F31.9 - BIPOLAR DISORDER, UNSPECIFIED (6) Cellulitis of left lower leg Code(s): L03.116 - CELLULITIS OF LEFT LOWER LIMB (7) Diabetes mellitus type 2 in obese Code(s): E11.9 - TYPE 2 DIABETES MELLITUS WITHOUT COMPLICATIONS E66.9 - OBESITY, UNSPECIFIED (8) Hypothyroid Code(s): E03.9 - HYPOTHYROIDISM, UNSPECIFIED Qualifiers: Hypothyroidism type: acquired Qualified Code(s): E03.9 - Hypothyroidism, unspecified Assessment/Plan Current Medications Generic Name Dose Route Start Last Admin Trade Name Freq PRN Reason Stop Dose Admin Acetaminophen 325 mg 12/03/16 11:00 Tylenol - PO Q6H PRN Atorvastatin Calcium 10 mg 12/03/16 22:00 12/04/16 21:28 Lipitor - PO 10 mg HS [facility] Administration Chlorpromazine HCl 100 mg/ 150 mg 12/03/16 22:00 12/04/16 21:30 Chlorpromazine HCl 50 mg PO 150 mg HS [facility] Administration Clonazepam 1 mg 12/03/16 10:47 12/04/16 08:05 Klonopin - PO 1 mg Q6H PRN Administration AGITATION Collagenase 1 applic 12/04/16 10:00 12/05/16 09:59 Santyl - TP 1 applic DAILY [facility] Administration Divalproex Sodium 500 mg 12/03/16 22:00 12/05/16 09:52 Depakote - PO 500 mg BID [facility] Administration Docusate Sodium 100 mg 12/03/16 22:00 12/05/16 11:20 Colace - PO 100 mg BID [facility] Administration Dorzolamide HCl 1 drop 12/04/16 10:00 12/05/16 10:00 Trusopt 2% OU 1 drop BID [facility] Administration Heparin Sodium (Porcine) 5,000 unit 12/03/16 10:00 12/05/16 09:52 Heparin - SQ 5,000 unit BID [facility] Administration Sodium Chloride 1,000 mls @ 45 mls/hr 12/04/16 11:29 12/05/16 06:30 Normal Saline - IV 45 mls/hr ASDIR [facility] Administration Insulin Aspart 0 vial 12/03/16 16:30 12/05/16 16:49 Novolog Vial Sliding Scale - SQ 10 units ACHS [facility] Administration Protocol Levothyroxine Sodium 50 mcg 12/06/16 07:00 Synthroid - PO DAILY@0700 [facility] Ramipril 2.5 mg 12/04/16 10:00 12/05/16 09:52 Altace - PO 2.5 mg DAILY [facility] Administration Timolol Maleate 1 drop 12/04/16 10:00 12/05/16 09:59 Timoptic 0.5% OU 1 drop BID [facility] Administration Laboratory Tests 12/04/16 19:00 Protein/Creatinin Ratio 0.36 Impression 1. CKD 2. DM 3. sepsis 4. cellulitis 5. bipolar 6. schizophrenia 7. hypothyroidism Plan - renal function is stabilizing - cont with ramipril - abx per ID - outpt renal workup - will follow PRN Dr Santamaria
[2016-12-05] MEDS ORDERED: PT OWN MED DRAWER 7, Y5N ONE (22:25)
[2016-12-05] MEDS: ATORVASTATIN CA 10 MG TABLET (FP) PO SCH (23:10)
[2016-12-05] MEDS: CHLORPROMAZINE PO SCH (23:10)
[2016-12-06] MEDS: LEVOTHYROXINE NA 50 MCG TABLET (FP) PO SCH (06:12)
[2016-12-06] MEDS: INSULIN SLIDING SCALE (NOVOLOG) 1 VIAL SQ SCH ×4 (06:12→21:18)
[2016-12-06 09:00] LABS: MCH 30.4 pg (25.7-33.7); MCHC 33.5 g/dl (32.0-35.9); MEAN CELL VOLUME 90.7 fl (80-96); MEAN PLT VOLUME 7.7 fl (7.5-11.1); PLATELET COUNT 131 K/MM3 (134-434); RDW 16.1 % (11.9-15.9); WHITE BLOOD COUNT 6.9 K/mm3 (4.0-10.0)
[2016-12-06 09:57] LABS: TROPONIN I 0.02 ng/ml (0.00-0.05)
[2016-12-06] MEDS: HEPARIN NA (PORCINE) 5,000 UNITS/ML 1ML VIAL SQ SCH ×2 (10:03→21:17)
[2016-12-06] MEDS: DOCUSATE SODIUM 100 MG CAPSULE (FP) PO SCH ×3 (10:03→21:17)
[2016-12-06] MEDS: DIVALPROEX SODIUM 500 MG TABLET E.C. PO SCH ×2 (10:03→21:17)
[2016-12-06] MEDS: COLLAGENASE CLOSTRIDIUM HIST. 30 GRAMS TUBE TP SCH (10:03)
[2016-12-06] MEDS: RAMIPRIL 2.5 MG CAPSULE (FP) PO SCH (10:03)
[2016-12-06] MEDS: DORZOLAMIDE 2% HCL OPHTHALMIC SOLUTION 10 ML BOTTLE OU SCH ×2 (10:04→21:24)
[2016-12-06] MEDS: TIMOLOL 0.5% OPHTHALMIC SOL 5 ML BOTTLE OU SCH ×2 (10:04→21:26)
[2016-12-06 10:06] LABS: THYROID STIMULATING HORMONE 19.1 uIU/ml (0.358-3.74)
[2016-12-06 10:17] LABS: ALBUMIN 2.3 g/dl (3.4-5.0); CALCIUM 8.3 mg/dL (8.5-10.1); CREATININE 2.4 mg/dL (0.7-1.3)
[2016-12-06 10:18] LABS: BILIRUBIN,TOTAL 0.4 mg/dL (0.2-1.0); TOT PROT 6.9 g/dl (6.4-8.2)
--- NOTE | 2016-12-06 11:15 | PN ---
Progress Note, Physician History of Present Illness: No c/o leg pain Temp, WBC improved - Current Medication List Current Medications: Active Medications Acetaminophen (Tylenol -) 325 mg PO Q6H PRN Atorvastatin Calcium (Lipitor -) 10 mg PO [facility] Last Admin: 12/05/16 23:10 Dose: 10 mg Chlorpromazine HCl 100 mg/ (Chlorpromazine HCl 50 mg) 150 mg PO HS [facility] Last Admin: 12/05/16 23:10 Dose: 150 mg Collagenase (Santyl -) 1 applic TP DAILY [facility] Last Admin: 12/06/16 10:03 Dose: 1 applic Divalproex Sodium (Depakote -) 500 mg PO BID [facility] Last Admin: 12/06/16 10:03 Dose: 500 mg Docusate Sodium (Colace -) 100 mg PO BID [facility] Last Admin: 12/06/16 10:14 Dose: Not Given Dorzolamide HCl (Trusopt 2%) 1 drop OU BID [facility] Last Admin: 12/06/16 10:04 Dose: 1 drop Heparin Sodium (Porcine) (Heparin -) 5,000 unit SQ BID [facility] Last Admin: 12/06/16 10:03 Dose: 5,000 unit Sodium Chloride (Normal Saline -) 1,000 mls @ 45 mls/hr IV ASDIR [facility] Last Admin: 12/05/16 06:30 Dose: 45 mls/hr Insulin Aspart (Novolog Vial Sliding Scale -) 0 vial SQ ACHS [facility] PRN Reason: Protocol Last Admin: 12/06/16 06:12 Dose: 2 units Levothyroxine Sodium (Synthroid -) 50 mcg PO DAILY@0700 [facility] Last Admin: 12/06/16 06:12 Dose: Not Given Ramipril (Altace -) 2.5 mg PO DAILY [facility] Last Admin: 12/06/16 10:03 Dose: 2.5 mg Timolol Maleate (Timoptic 0.5%) 1 drop OU BID [facility] Last Admin: 12/06/16 10:04 Dose: 1 drop - Objective Vital Signs: Vital Signs Temperature 97.7 F 12/06/16 05:48 Pulse Rate 76 12/06/16 05:48 Respiratory Rate 20 12/06/16 05:48 Blood Pressure 108/60 12/06/16 05:48 O2 Sat by Pulse Oximetry (%) 100 12/04/16 20:04 Constitutional: Yes: No Distress Eyes: Yes: Conjunctiva Clear Cardiovascular: Yes: Regular Rate and Rhythm, S1, S2 Respiratory: Yes: CTA Bilaterally Gastrointestinal: Yes: Normal Bowel Sounds, Soft. No: Tenderness Extremities: Yes: Other (decreased erythema/ warmth LE ; + dry ulcer) Labs: CBC, BMP 12/06/16 07:45 12/06/16 07:45 INR, PTT INR 1.20 (0.82-1.09) H 12/02/16 18:18 Assessment/Plan Cellulitis L LE- improving Non healing great toe ulcer Fever/ leukocytosis- improved Azotemia Continue zosyn. Redose vancomycin
--- NOTE | 2016-12-06 11:48 | PN ---
Progress Note (short form) - Note Progress Note: RENAL Pt known to me from [facility] has ckd h/o bipolar and diabetes Last Vital Signs Temp Pulse Resp BP Pulse Ox 97.7 F 76 20 108/60 100 12/06/16 05:48 12/06/16 05:48 12/06/16 05:48 12/06/16 05:48 12/04/16 20:04 comfortable asleep lying flat not tachypneic abd soft ext no edema, minimal erythema CBC, BMP 12/06/16 07:45 12/06/16 07:45 Impression 1. CKD- in part due to dm ?lithium 2. DM 3. sepsis 4. cellulitis 5. bipolar 6. schizophrenia 7. hypothyroidism Plan - renal function is stabilizing - cont with ramipril - abx per ID - outpt renal workup [facility]
[2016-12-06] MEDS ORDERED: INSULIN (NOVOLOG) ASPART 100 UNITS/ML 10ML VIAL ONE ×2 (11:58→17:22)
[2016-12-06] MEDS: SODIUM CHLORIDE 1,000 ML IV SCH (12:21)
--- NOTE | 2016-12-06 12:59 | CONSULT ---
Consult - text type - Consultation Consultation Note: CARDIOLOGY. NO CHEST PAIN. NO DYSPNEA. APPEARS WELL, LYING FLAT VITAL SIGNS STABLE. RR 16/MINUTE HEART RATE 70/MINUTE NO MURMUR. NO GALLOP TROPONIN 0.02 IMPRESSION. NO EVIDENCE OF ACUTE CARDIAC EVENT/ISCHEMIA/INFARCTION. CARDIOVASCULAR/HEMODYNAMIC STATUS STABLE. REC; "RISK FACTOR MODIFICATION" DIRECTED BY IM/VASCULAR. WILL FOLLOW PRN. PLEASE RE CONSULT IF NECESSARY
[2016-12-06] MEDS: PIPERACILLIN/TAZOB 2.25 GM/50 ML PRE-DOCKED BAG IVPB SCH ×2 (13:24→17:35)
--- NOTE | 2016-12-06 14:18 | PN ---
Progress Note, Physician Chief Complaint: ASLEEP, COMFORTABLE NO FEVER OR CHILLS - Current Medication List Current Medications: Active Medications Acetaminophen (Tylenol -) 325 mg PO Q6H PRN Atorvastatin Calcium (Lipitor -) 10 mg PO [facility] Last Admin: 12/05/16 23:10 Dose: 10 mg Chlorpromazine HCl 100 mg/ (Chlorpromazine HCl 50 mg) 150 mg PO HS [facility] Last Admin: 12/05/16 23:10 Dose: 150 mg Collagenase (Santyl -) 1 applic TP DAILY [facility] Last Admin: 12/06/16 10:03 Dose: 1 applic Divalproex Sodium (Depakote -) 500 mg PO BID [facility] Last Admin: 12/06/16 10:03 Dose: 500 mg Docusate Sodium (Colace -) 100 mg PO BID [facility] Last Admin: 12/06/16 10:14 Dose: Not Given Dorzolamide HCl (Trusopt 2%) 1 drop OU BID [facility] Last Admin: 12/06/16 10:04 Dose: 1 drop Heparin Sodium (Porcine) (Heparin -) 5,000 unit SQ BID [facility] Last Admin: 12/06/16 10:03 Dose: 5,000 unit Sodium Chloride (Normal Saline -) 1,000 mls @ 45 mls/hr IV ASDIR [facility] Last Admin: 12/06/16 12:21 Dose: 45 mls/hr Vancomycin HCl (Vancomycin (Pre-Docked)) 250 mls @ 200 mls/hr IVPB ONCE ONE Stop: 12/06/16 16:14 Insulin Aspart (Novolog Vial Sliding Scale -) 0 vial SQ ACHS [facility] PRN Reason: Protocol Last Admin: 12/06/16 12:11 Dose: 2 units Levothyroxine Sodium (Synthroid -) 50 mcg PO DAILY@0700 [facility] Last Admin: 12/06/16 06:12 Dose: Not Given Piperacillin Sod/Tazobactam Sod (Zosyn 2.25gm Ivpb (Pre-Docked)) 2.25 gm IVPB Q8H-IV [facility] Last Admin: 12/06/16 13:24 Dose: 2.25 gm Ramipril (Altace -) 2.5 mg PO DAILY [facility] Last Admin: 12/06/16 10:03 Dose: 2.5 mg Timolol Maleate (Timoptic 0.5%) 1 drop OU BID [facility] Last Admin: 12/06/16 10:04 Dose: 1 drop - Objective Vital Signs: Vital Signs Temperature 97.7 F 12/06/16 10:00 Pulse Rate 76 12/06/16 10:00 Respiratory Rate 18 12/06/16 10:00 Blood Pressure 110/70 12/06/16 10:00 O2 Sat by Pulse Oximetry (%) 100 12/06/16 09:00 Constitutional: Yes: No Distress Eyes: Yes: WNL HENT: Yes: WNL Neck: Yes: WNL Cardiovascular: Yes: WNL Respiratory: Yes: WNL Gastrointestinal: Yes: WNL Genitourinary: Yes: WNL Musculoskeletal: Yes: WNL Extremities: Yes: Other Edema: No Peripheral Pulses WNL: Yes Integumentary: Yes: Erythema Wound/Incision: Yes: Open to air Neurological: Yes: WNL ...Motor Strength: WNL Psychiatric: Yes: Other Labs: CBC, BMP 12/06/16 07:45 12/06/16 07:45 INR, PTT INR 1.20 (0.82-1.09) H 12/02/16 18:18 Problem List - Problems (1) Chronic kidney disease Code(s): N18.9 - CHRONIC KIDNEY DISEASE, UNSPECIFIED Qualifiers: Chronic kidney disease stage: unspecified stage Qualified Code(s): N18.9 - Chronic kidney disease, unspecified (2) Controlled type 1 diabetes mellitus with peripheral vascular disease Code(s): E10.51 - TYPE 1 DIABETES W DIABETIC PERIPHERAL ANGIOPATH W/O GANGRENE (3) Fever Code(s): R50.9 - FEVER, UNSPECIFIED Qualifiers: Fever type: unspecified Qualified Code(s): R50.9 - Fever, unspecified (4) HTN (hypertension) Code(s): I10 - ESSENTIAL (PRIMARY) HYPERTENSION (5) Left leg cellulitis Code(s): L03.116 - CELLULITIS OF LEFT LOWER LIMB (6) Psychosis Code(s): F29 - UNSP PSYCHOSIS NOT DUE TO A SUBSTANCE OR KNOWN PHYSIOL COND (7) Weakness Code(s): R53.1 - WEAKNESS Assessment/Plan IV ABX PER ID RENAL FOLLOW UP PT EVAL SSI BGM
[2016-12-06] MEDS ORDERED: VANCOMYCIN 1 GRAM (PRE-DOCKED) 250 ML IVPB ONE (15:00)
[2016-12-06] MEDS: ATORVASTATIN CA 10 MG TABLET (FP) PO SCH (21:17)
[2016-12-06] MEDS: CHLORPROMAZINE PO SCH (21:18)
[2016-12-07] MEDS: PIPERACILLIN/TAZOB 2.25 GM/50 ML PRE-DOCKED BAG IVPB SCH ×3 (01:33→18:09)
[2016-12-07] MEDS ORDERED: INSULIN (NOVOLOG) ASPART 100 UNITS/ML 10ML VIAL ONE ×2 (06:36→11:47)
[2016-12-07] MEDS: LEVOTHYROXINE NA 50 MCG TABLET (FP) PO SCH (06:37)
[2016-12-07] MEDS: INSULIN SLIDING SCALE (NOVOLOG) 1 VIAL SQ SCH ×4 (06:37→21:39)
[2016-12-07] MEDS ORDERED: PT OWN MED DRAWER 7, Y5N ONE (10:16)
[2016-12-07] MEDS: HEPARIN NA (PORCINE) 5,000 UNITS/ML 1ML VIAL SQ SCH ×2 (10:18→21:38)
[2016-12-07] MEDS: DIVALPROEX SODIUM 500 MG TABLET E.C. PO SCH ×2 (10:18→21:38)
[2016-12-07] MEDS: RAMIPRIL 2.5 MG CAPSULE (FP) PO SCH (10:18)
[2016-12-07] MEDS: DORZOLAMIDE 2% HCL OPHTHALMIC SOLUTION 10 ML BOTTLE OU SCH ×2 (10:19→21:48)
[2016-12-07] MEDS: TIMOLOL 0.5% OPHTHALMIC SOL 5 ML BOTTLE OU SCH ×2 (10:19→21:43)
[2016-12-07] MEDS: COLLAGENASE CLOSTRIDIUM HIST. 30 GRAMS TUBE TP SCH (10:19)
[2016-12-07] MEDS: DOCUSATE SODIUM 100 MG CAPSULE (FP) PO SCH ×2 (10:28→21:38)
--- NOTE | 2016-12-07 10:53 | PN ---
Progress Note (short form) - Note Progress Note: RENAL Pt known to me from [facility] has ckd h/o bipolar and diabetes. Was previously on lithium Last Vital Signs Temp Pulse Resp BP Pulse Ox 97.3 F L 78 17 104/64 100 12/07/16 06:02 12/07/16 06:02 12/07/16 06:02 12/07/16 06:02 12/06/16 21:00 comfortable asleep. Arousable lying flat lungs clear not tachypneic abd soft ext no edema, minimal erythema CBC, BMP 12/06/16 07:45 12/06/16 07:45 Impression 1. CKD- in part due to dm ?lithium 2. DM 3. sepsis 4. cellulitis 5. bipolar 6. schizophrenia 7. hypothyroidism Plan - renal function is stabilizing - cont with ramipril - abx per ID - repeat labs MV
--- NOTE | 2016-12-07 13:48 | PN ---
Progress Note, Physician Chief Complaint: AWAKE ALERT NAD - Current Medication List Current Medications: Active Medications Acetaminophen (Tylenol -) 325 mg PO Q6H PRN Atorvastatin Calcium (Lipitor -) 10 mg PO HS [facility] Last Admin: 12/06/16 21:17 Dose: 10 mg Chlorpromazine HCl 100 mg/ (Chlorpromazine HCl 50 mg) 150 mg PO HS [facility] Last Admin: 12/06/16 21:18 Dose: 150 mg Collagenase (Santyl -) 1 applic TP DAILY [facility] Last Admin: 12/07/16 10:19 Dose: 1 applic Divalproex Sodium (Depakote -) 500 mg PO BID [facility] Last Admin: 12/07/16 10:18 Dose: 500 mg Docusate Sodium (Colace -) 100 mg PO BID [facility] Last Admin: 12/07/16 10:28 Dose: Not Given Dorzolamide HCl (Trusopt 2%) 1 drop OU BID [facility] Last Admin: 12/07/16 10:19 Dose: 1 drop Heparin Sodium (Porcine) (Heparin -) 5,000 unit SQ BID [facility] Last Admin: 12/07/16 10:18 Dose: 5,000 unit Sodium Chloride (Normal Saline -) 1,000 mls @ 45 mls/hr IV ASDIR [facility] Last Admin: 12/06/16 12:21 Dose: 45 mls/hr Insulin Aspart (Novolog Vial Sliding Scale -) 0 vial SQ ACHS [facility] PRN Reason: Protocol Last Admin: 12/07/16 11:50 Dose: 4 units Levothyroxine Sodium (Synthroid -) 50 mcg PO DAILY@0700 [facility] Last Admin: 12/07/16 06:37 Dose: Not Given Piperacillin Sod/Tazobactam Sod (Zosyn 2.25gm Ivpb (Pre-Docked)) 2.25 gm IVPB Q8H-IV [facility] Last Admin: 12/07/16 10:18 Dose: 2.25 gm Ramipril (Altace -) 2.5 mg PO DAILY [facility] Last Admin: 12/07/16 10:18 Dose: 2.5 mg Timolol Maleate (Timoptic 0.5%) 1 drop OU BID [facility] Last Admin: 12/07/16 10:19 Dose: 1 drop - Objective Vital Signs: Vital Signs Temperature 97.8 F 12/07/16 10:00 Pulse Rate 76 12/07/16 10:00 Respiratory Rate 20 12/07/16 10:00 Blood Pressure 118/68 12/07/16 10:00 O2 Sat by Pulse Oximetry (%) 100 12/06/16 21:00 Constitutional: Yes: Well Nourished, No Distress Eyes: Yes: WNL HENT: Yes: WNL Neck: Yes: WNL Cardiovascular: Yes: WNL Respiratory: Yes: WNL Gastrointestinal: Yes: WNL Genitourinary: Yes: WNL Musculoskeletal: Yes: WNL Extremities: Yes: WNL Edema: No Peripheral Pulses WNL: Yes Integumentary: Yes: Erythema Wound/Incision: Yes: Clean/Dry Neurological: Yes: WNL ...Motor Strength: WNL Psychiatric: Yes: Other Labs: CBC, BMP 12/06/16 07:45 12/06/16 07:45 INR, PTT INR 1.20 (0.82-1.09) H 12/02/16 18:18 Problem List - Problems (1) Chronic kidney disease Code(s): N18.9 - CHRONIC KIDNEY DISEASE, UNSPECIFIED Qualifiers: Chronic kidney disease stage: unspecified stage Qualified Code(s): N18.9 - Chronic kidney disease, unspecified (2) Controlled type 1 diabetes mellitus with peripheral vascular disease Code(s): E10.51 - TYPE 1 DIABETES W DIABETIC PERIPHERAL ANGIOPATH W/O GANGRENE (3) Fever Code(s): R50.9 - FEVER, UNSPECIFIED Qualifiers: Fever type: unspecified Qualified Code(s): R50.9 - Fever, unspecified (4) HTN (hypertension) Code(s): I10 - ESSENTIAL (PRIMARY) HYPERTENSION (5) Left leg cellulitis Code(s): L03.116 - CELLULITIS OF LEFT LOWER LIMB (6) Psychosis Code(s): F29 - UNSP PSYCHOSIS NOT DUE TO A SUBSTANCE OR KNOWN PHYSIOL COND (7) Weakness Code(s): R53.1 - WEAKNESS Assessment/Plan IV ABX PER ID RENAL FOLLOW UP PT EVAL SSI BGM
[2016-12-07] MEDS: SODIUM CHLORIDE 1,000 ML IV SCH (16:41)
[2016-12-07] MEDS: ATORVASTATIN CA 10 MG TABLET (FP) PO SCH (21:38)
[2016-12-07] MEDS: CHLORPROMAZINE PO SCH (21:43)
--- NOTE | 2016-12-07 23:38 | EKG ---
Test Reason : Blood Pressure : / mmHG Vent. Rate : 075 BPM Atrial Rate : 075 BPM P-R Int : 194 ms QRS Dur : 120 ms QT Int : 386 ms P-R-T Axes : 030 012 008 degrees QTc Int : 431 ms NORMAL SINUS RHYTHM RIGHT BUNDLE BRANCH BLOCK ABNORMAL ECG WHEN COMPARED WITH ECG OF 02-DEC-2016 19:01, VENT. RATE HAS DECREASED BY 57 BPM Confirmed by LILLY FAROOQ MD ([id number]) on 12/07/2016 11:38:11 PM Referred By: SAVI COOPER Confirmed By:LILLY FAROOQ MD
[2016-12-08] MEDS: PIPERACILLIN/TAZOB 2.25 GM/50 ML PRE-DOCKED BAG IVPB SCH ×2 (01:04→10:36)
[2016-12-08] MEDS ORDERED: INSULIN (NOVOLOG) ASPART 100 UNITS/ML 10ML VIAL ONE (06:06)
[2016-12-08] MEDS: INSULIN SLIDING SCALE (NOVOLOG) 1 VIAL SQ SCH ×4 (06:08→21:45)
[2016-12-08] MEDS: LEVOTHYROXINE NA 50 MCG TABLET (FP) PO SCH (06:09)
[2016-12-08 08:01] LABS: MCH 31.5 pg (25.7-33.7); MCHC 34.6 g/dl (32.0-35.9); MEAN CELL VOLUME 90.8 fl (80-96); MEAN PLT VOLUME 7.3 fl (7.5-11.1); PLATELET COUNT 148 K/MM3 (134-434); RDW 16.4 % (11.9-15.9); WHITE BLOOD COUNT 7.9 K/mm3 (4.0-10.0)
[2016-12-08 09:21] LABS: ALBUMIN 2.4 g/dl (3.4-5.0); BILIRUBIN,TOTAL 0.4 mg/dL (0.2-1.0); CALCIUM 8.7 mg/dL (8.5-10.1); CREATININE 2.5 mg/dL (0.7-1.3); TOT PROT 7.1 g/dl (6.4-8.2)
[2016-12-08] MEDS ORDERED: PT OWN MED DRAWER 7, Y5N ONE (10:34)
[2016-12-08] MEDS: SODIUM CHLORIDE 1,000 ML IV SCH (10:36)
[2016-12-08] MEDS: DIVALPROEX SODIUM 500 MG TABLET E.C. PO SCH ×2 (10:37→21:13)
[2016-12-08] MEDS: DOCUSATE SODIUM 100 MG CAPSULE (FP) PO SCH ×2 (10:37→21:13)
[2016-12-08] MEDS: RAMIPRIL 2.5 MG CAPSULE (FP) PO SCH (10:37)
[2016-12-08] MEDS: HEPARIN NA (PORCINE) 5,000 UNITS/ML 1ML VIAL SQ SCH ×2 (10:37→21:13)
[2016-12-08] MEDS: COLLAGENASE CLOSTRIDIUM HIST. 30 GRAMS TUBE TP SCH (10:37)
[2016-12-08] MEDS: DORZOLAMIDE 2% HCL OPHTHALMIC SOLUTION 10 ML BOTTLE OU SCH ×2 (10:38→21:20)
[2016-12-08] MEDS: TIMOLOL 0.5% OPHTHALMIC SOL 5 ML BOTTLE OU SCH ×2 (10:38→21:18)
--- NOTE | 2016-12-08 11:31 | DS ---
Physical Examination Vital Signs: Vital Signs Temperature 97.6 F 12/08/16 06:00 Pulse Rate 76 12/08/16 06:00 Respiratory Rate 20 12/08/16 06:00 Blood Pressure 102/61 12/08/16 06:00 O2 Sat by Pulse Oximetry (%) 100 12/07/16 21:00 Findings/Remarks: CALM NO DISTRESS Constitutional: Yes: Calm Cardiovascular: Yes: Regular Rate and Rhythm, S1, S2 Respiratory: Yes: CTA Bilaterally Gastrointestinal: Yes: Normal Bowel Sounds, Soft Edema: Yes Integumentary: Yes: Erythema (IMPROVED) Neurological: Yes: Alert, Oriented Labs: CBC, BMP 12/08/16 07:00 12/08/16 07:00 Discharge Summary Reason For Visit: CONTROLLED TYPE I DIABETES MELLILITIS Current Active Problems CHF (congestive heart failure) (Acute) Chronic kidney disease (Acute) Controlled type 1 diabetes mellitus with peripheral vascular disease (Acute) Fever (Acute) HTN (hypertension) (Acute) Left leg cellulitis (Acute) Psychosis (Acute) Weakness (Acute) Hospital Course: (1) Chronic kidney disease Code(s): N18.9 - CHRONIC KIDNEY DISEASE, UNSPECIFIED Qualifiers: Chronic kidney disease stage: unspecified stage Qualified Code(s): N18.9 - Chronic kidney disease, unspecified (2) Controlled type 1 diabetes mellitus with peripheral vascular disease Code(s): E10.51 - TYPE 1 DIABETES W DIABETIC PERIPHERAL ANGIOPATH W/O GANGRENE (3) Fever Code(s): R50.9 - FEVER, UNSPECIFIED Qualifiers: Fever type: unspecified Qualified Code(s): R50.9 - Fever, unspecified (4) HTN (hypertension) Code(s): I10 - ESSENTIAL (PRIMARY) HYPERTENSION (5) Left leg cellulitis Code(s): L03.116 - CELLULITIS OF LEFT LOWER LIMB (6) Psychosis Code(s): F29 - UNSP PSYCHOSIS NOT DUE TO A SUBSTANCE OR KNOWN PHYSIOL COND (7) Weakness Code(s): R53.1 - WEAKNESS Assessment/Plan IV ABX PER ID -> AUGMENTIN x 7 DAYS RENAL FOLLOW UP -> CAN F/U OUTPT PT EVAL SSI BGM DISCHARGE NEEDS PCP F/U APPT IN 1 WEEK RN GYN FM Condition: Stable - Instructions Referrals: Rey Pitts [Primary Care Provider] - Disposition: HOME - Home Medications Comprehensive Discharge Medication List: Ambulatory Orders Acetaminophen [Tylenol] 325 mg PO PRN 12/02/16 Chlorpromazine [Thorazine -] 150 mg PO HS 12/02/16 Clonazepam [Klonopin] 1 mg PO HS 12/02/16 Collagenase Clostridium Hist. [Santyl] 1 applic TP DAILY 12/02/16 Divalproex [Depakote -] 500 mg PO BID 12/02/16 Docusate Sodium [Colace -] 100 mg PO BID 12/02/16 Dorzolamide HCl [Trusopt 2%] 1 drop OD BID 12/02/16 Fenofibric Acid (Choline) [Fenofibric Acid] 135 mg PO DAILY 12/02/16 Guaifenesin [Robitussin] 100 mg PO PRN 12/02/16 Hydrocodone/Acetaminophen [[place] 7.5-325 Tablet] 1 each PO Q8H 12/02/16 Insulin (Novolog) [Novolog] 0 units SQ PRN 12/02/16 Insulin Glargine,Hum.rec.anlog [Lantus (nf)] 0 units SQ DAILY 12/02/16 Insulin Lispro [Humalog] 100 unit SQ ASDIR 12/02/16 Ketoconazole 2% Shampoo [Nizoral 2% Shampoo -] 1 applic TP ASDIR 12/02/16 Linagliptin [Tradjenta] 5 mg PO DAILY 12/02/16 Lorazepam [Ativan] 1 mg PO PRN 12/02/16 Magnesium Hydroxide [Milk of Magnesia] 400 mg PO PRN 12/02/16 Na Phos,M-B/Na Phos,Di-Ba [Fleet Enema] 133 ml RC PRN 12/02/16 Ramipril [Altace] 2.5 mg PO DAILY 12/02/16 Selenium Sulfide [Selenium Sulfide 2.25% Shampoo] 1 applic TP ASDIR 12/02/16 Simvastatin [Zocor -] 20 mg PO HS 12/02/16 Timolol 0.5% [Timoptic 0.5%] 1 drop OD BID 12/02/16
--- NOTE | 2016-12-08 11:37 | PN ---
Progress Note, Physician History of Present Illness: Awake, alert No c/o leg /foot pain Temps remain down- afebrile WBC WNL - Current Medication List Current Medications: Active Medications Acetaminophen (Tylenol -) 325 mg PO Q6H PRN Atorvastatin Calcium (Lipitor -) 10 mg PO HS [facility] Last Admin: 12/07/16 21:38 Dose: 10 mg Chlorpromazine HCl 100 mg/ (Chlorpromazine HCl 50 mg) 150 mg PO HS [facility] Last Admin: 12/07/16 21:43 Dose: 150 mg Collagenase (Santyl -) 1 applic TP DAILY [facility] Last Admin: 12/08/16 10:37 Dose: 1 applic Divalproex Sodium (Depakote -) 500 mg PO BID [facility] Last Admin: 12/08/16 10:37 Dose: 500 mg Docusate Sodium (Colace -) 100 mg PO BID [facility] Last Admin: 12/08/16 10:37 Dose: Not Given Dorzolamide HCl (Trusopt 2%) 1 drop OU BID [facility] Last Admin: 12/08/16 10:38 Dose: 1 drop Heparin Sodium (Porcine) (Heparin -) 5,000 unit SQ BID [facility] Last Admin: 12/08/16 10:37 Dose: 5,000 unit Sodium Chloride (Normal Saline -) 1,000 mls @ 45 mls/hr IV ASDIR [facility] Last Admin: 12/08/16 10:36 Dose: 45 mls/hr Insulin Aspart (Novolog Vial Sliding Scale -) 0 vial SQ ACHS [facility] PRN Reason: Protocol Last Admin: 12/08/16 06:08 Dose: 6 units Levothyroxine Sodium (Synthroid -) 50 mcg PO DAILY@0700 [facility] Last Admin: 12/08/16 06:09 Dose: Not Given Piperacillin Sod/Tazobactam Sod (Zosyn 2.25gm Ivpb (Pre-Docked)) 2.25 gm IVPB Q8H-IV [facility] Last Admin: 12/08/16 10:36 Dose: 2.25 gm Ramipril (Altace -) 2.5 mg PO DAILY [facility] Last Admin: 12/08/16 10:37 Dose: 2.5 mg Timolol Maleate (Timoptic 0.5%) 1 drop OU BID [facility] Last Admin: 12/08/16 10:38 Dose: 1 drop - Objective Vital Signs: Vital Signs Temperature 97.6 F 12/08/16 06:00 Pulse Rate 76 12/08/16 06:00 Respiratory Rate 20 12/08/16 06:00 Blood Pressure 102/61 12/08/16 06:00 O2 Sat by Pulse Oximetry (%) 100 12/07/16 21:00 Constitutional: Yes: No Distress Eyes: Yes: Conjunctiva Clear Cardiovascular: Yes: Regular Rate and Rhythm, S1, S2 Respiratory: Yes: CTA Bilaterally Gastrointestinal: Yes: Normal Bowel Sounds, Soft. No: Tenderness Extremities: Yes: Other (erythema L LE almost completely resolved erythema/ swelling L great toe much improved dry ulcer great toe) Labs: CBC, BMP 12/08/16 07:00 12/08/16 07:00 INR, PTT INR 1.20 (0.82-1.09) H 12/02/16 18:18 Assessment/Plan Cellulitis L LE- improved Non healing great toe ulcer Fever/ leukocytosis- resolved Azotemia Redose vancomycin x 1 Switch to po Augmentin 500mg bid x 7d OK for discharge from ID standpoint
[2016-12-08] MEDS ORDERED: VANCOMYCIN 1 GRAM (PRE-DOCKED) 250 ML IVPB ONE (13:00)
--- NOTE | 2016-12-08 15:51 | PN ---
Progress Note, Physician History of Present Illness: Pt seen and examined at bedside. He is awake and alert. He appears comfortable. He is calmer today. - Current Medication List Current Medications: Active Medications Acetaminophen (Tylenol -) 325 mg PO Q6H PRN Amoxicillin/Clavulanate Potassium (Augmentin - 500mg Tablet) 1 tab PO BID@0800, 1730 [facility] Atorvastatin Calcium (Lipitor -) 10 mg PO [facility] Last Admin: 12/07/16 21:38 Dose: 10 mg Chlorpromazine HCl 100 mg/ (Chlorpromazine HCl 50 mg) 150 mg PO HS [facility] Last Admin: 12/07/16 21:43 Dose: 150 mg Collagenase (Santyl -) 1 applic TP DAILY [facility] Last Admin: 12/08/16 10:37 Dose: 1 applic Divalproex Sodium (Depakote -) 500 mg PO BID [facility] Last Admin: 12/08/16 10:37 Dose: 500 mg Docusate Sodium (Colace -) 100 mg PO BID [facility] Last Admin: 12/08/16 10:37 Dose: Not Given Dorzolamide HCl (Trusopt 2%) 1 drop OU BID [facility] Last Admin: 12/08/16 10:38 Dose: 1 drop Heparin Sodium (Porcine) (Heparin -) 5,000 unit SQ BID [facility] Last Admin: 12/08/16 10:37 Dose: 5,000 unit Sodium Chloride (Normal Saline -) 1,000 mls @ 45 mls/hr IV ASDIR [facility] Last Admin: 12/08/16 10:36 Dose: 45 mls/hr Insulin Aspart (Novolog Vial Sliding Scale -) 0 vial SQ ACHS [facility] PRN Reason: Protocol Last Admin: 12/08/16 11:36 Dose: 6 units Levothyroxine Sodium (Synthroid -) 50 mcg PO DAILY@0700 [facility] Last Admin: 12/08/16 06:09 Dose: Not Given Ramipril (Altace -) 2.5 mg PO DAILY [facility] Last Admin: 12/08/16 10:37 Dose: 2.5 mg Timolol Maleate (Timoptic 0.5%) 1 drop OU BID [facility] Last Admin: 12/08/16 10:38 Dose: 1 drop - Objective Vital Signs: Vital Signs Temperature 97.9 F 12/08/16 14:00 Pulse Rate 84 12/08/16 14:00 Respiratory Rate 20 12/08/16 14:00 Blood Pressure 102/64 12/08/16 11:00 O2 Sat by Pulse Oximetry (%) 100 12/08/16 09:00 Constitutional: Yes: Calm Eyes: Yes: Conjunctiva Clear HENT: Yes: Atraumatic Neck: Yes: Supple Cardiovascular: Yes: S1, S2 Respiratory: Yes: CTA Bilaterally Gastrointestinal: Yes: Soft Genitourinary: Yes: WNL Musculoskeletal: Yes: WNL Extremities: Yes: WNL Edema: No Integumentary: Yes: Other (left leg cellulitis is improved) Neurological: Yes: Oriented Psychiatric: Yes: Oriented Labs: CBC, BMP 12/08/16 07:00 12/08/16 07:00 INR, PTT INR 1.20 (0.82-1.09) H 12/02/16 18:18 Problem List - Problems (1) CHF (congestive heart failure) Code(s): I50.9 - HEART FAILURE, UNSPECIFIED (2) Chronic kidney disease Code(s): N18.9 - CHRONIC KIDNEY DISEASE, UNSPECIFIED Qualifiers: Chronic kidney disease stage: unspecified stage Qualified Code(s): N18.9 - Chronic kidney disease, unspecified (3) HTN (hypertension) Code(s): I10 - ESSENTIAL (PRIMARY) HYPERTENSION (4) LEDY (acute kidney injury) Code(s): N17.9 - ACUTE KIDNEY FAILURE, UNSPECIFIED (5) Bipolar 1 disorder Code(s): F31.9 - BIPOLAR DISORDER, UNSPECIFIED (6) Cellulitis of left lower leg Code(s): L03.116 - CELLULITIS OF LEFT LOWER LIMB (7) Diabetes mellitus type 2 in obese Code(s): E11.9 - TYPE 2 DIABETES MELLITUS WITHOUT COMPLICATIONS E66.9 - OBESITY, UNSPECIFIED (8) Hypothyroid Code(s): E03.9 - HYPOTHYROIDISM, UNSPECIFIED Qualifiers: Hypothyroidism type: acquired Qualified Code(s): E03.9 - Hypothyroidism, unspecified Assessment/Plan Current Medications Generic Name Dose Route Start Last Admin Trade Name Freq PRN Reason Stop Dose Admin Acetaminophen 325 mg 12/03/16 11:00 Tylenol - PO Q6H PRN Amoxicillin/Clavulanate Potassium 1 tab 12/08/16 17:30 Augmentin - 500mg Tablet PO BID@0800,1730 [facility] Atorvastatin Calcium 10 mg 12/03/16 22:00 12/07/16 21:38 Lipitor - PO 10 mg HS [facility] Administration Chlorpromazine HCl 100 mg/ 150 mg 12/03/16 22:00 12/07/16 21:43 Chlorpromazine HCl 50 mg PO 150 mg HS [facility] Administration Collagenase 1 applic 12/04/16 10:00 12/08/16 10:37 Santyl - TP 1 applic DAILY [facility] Administration Divalproex Sodium 500 mg 12/03/16 22:00 12/08/16 10:37 Depakote - PO 500 mg BID [facility] Administration Docusate Sodium 100 mg 12/03/16 22:00 12/08/16 10:37 Colace - PO Not Given BID [facility] Dorzolamide HCl 1 drop 12/04/16 10:00 12/08/16 10:38 Trusopt 2% OU 1 drop BID [facility] Administration Heparin Sodium (Porcine) 5,000 unit 12/03/16 10:00 12/08/16 10:37 Heparin - SQ 5,000 unit BID [facility] Administration Sodium Chloride 1,000 mls @ 45 mls/hr 12/04/16 11:29 12/08/16 10:36 Normal Saline - IV 45 mls/hr ASDIR [facility] Administration Insulin Aspart 0 vial 12/03/16 16:30 12/08/16 11:36 Novolog Vial Sliding Scale - SQ 6 units ACHS [facility] Administration Protocol Levothyroxine Sodium 50 mcg 12/06/16 07:00 12/08/16 06:09 Synthroid - PO Not Given DAILY@0700 [facility] Ramipril 2.5 mg 12/04/16 10:00 12/08/16 10:37 Altace - PO 2.5 mg DAILY [facility] Administration Timolol Maleate 1 drop 12/04/16 10:00 12/08/16 10:38 Timoptic 0.5% OU 1 drop BID [facility] Administration Impression 1. CKD 2. DM 3. sepsis 4. cellulitis 5. bipolar 6. schizophrenia 7. hypothyroidism Plan - renal function is stable - abx per ID - cont with ramipril - outpt renal workup Dr Santamaria
[2016-12-08] MEDS: AMOX TR/POT CLAV 500MG/125MG TABLETS (FP) PO SCH (17:07)
[2016-12-08] MEDS: ATORVASTATIN CA 10 MG TABLET (FP) PO SCH (21:13)
[2016-12-08] MEDS: CHLORPROMAZINE PO SCH (21:14)
[2016-12-09] MEDS: LEVOTHYROXINE NA 50 MCG TABLET (FP) PO SCH (06:28)
[2016-12-09] MEDS: INSULIN SLIDING SCALE (NOVOLOG) 1 VIAL SQ SCH ×2 (06:31→11:58)
[2016-12-09 08:19] LABS: MCHC 34.1 g/dl (32.0-35.9); MEAN CELL VOLUME 90.9 fl (80-96); MEAN PLT VOLUME 7.4 fl (7.5-11.1); PLATELET COUNT 177 K/MM3 (134-434); RDW 16.7 % (11.9-15.9); WHITE BLOOD COUNT 7.8 K/mm3 (4.0-10.0)
[2016-12-09 08:52] LABS: ALBUMIN 2.4 g/dl (3.4-5.0); BILIRUBIN,TOTAL 0.4 mg/dL (0.2-1.0); CALCIUM 8.5 mg/dL (8.5-10.1); CREATININE 2.2 mg/dL (0.7-1.3); TOT PROT 6.8 g/dl (6.4-8.2)
[2016-12-09] MEDS: RAMIPRIL 2.5 MG CAPSULE (FP) PO SCH (09:06)
[2016-12-09] MEDS: DIVALPROEX SODIUM 500 MG TABLET E.C. PO SCH (09:06)
[2016-12-09] MEDS: DOCUSATE SODIUM 100 MG CAPSULE (FP) PO SCH (09:06)
[2016-12-09] MEDS: AMOX TR/POT CLAV 500MG/125MG TABLETS (FP) PO SCH (09:06)
[2016-12-09] MEDS: HEPARIN NA (PORCINE) 5,000 UNITS/ML 1ML VIAL SQ SCH (09:07)
[2016-12-09] MEDS: COLLAGENASE CLOSTRIDIUM HIST. 30 GRAMS TUBE TP SCH (09:08)
[2016-12-09] MEDS: TIMOLOL 0.5% OPHTHALMIC SOL 5 ML BOTTLE OU SCH (09:08)
[2016-12-09] MEDS: DORZOLAMIDE 2% HCL OPHTHALMIC SOLUTION 10 ML BOTTLE OU SCH (09:08)
[2016-12-09 11:25] VITALS: BP 121/74
--- NOTE | 2016-12-09 12:07 | PN ---
Progress Note, Physician History of Present Illness: Pt seen and examined at bedside. He is awake and alert. He is calm today. - Current Medication List Current Medications: Active Medications Acetaminophen (Tylenol -) 325 mg PO Q6H PRN Amoxicillin/Clavulanate Potassium (Augmentin - 500mg Tablet) 1 tab PO BID@0800, 1730 [facility] Last Admin: 12/09/16 09:06 Dose: 1 tab Atorvastatin Calcium (Lipitor -) 10 mg PO [facility] Last Admin: 12/08/16 21:13 Dose: 10 mg Chlorpromazine HCl 100 mg/ (Chlorpromazine HCl 50 mg) 150 mg PO HS [facility] Last Admin: 12/08/16 21:14 Dose: 150 mg Collagenase (Santyl -) 1 applic TP DAILY [facility] Last Admin: 12/09/16 09:08 Dose: 1 applic Divalproex Sodium (Depakote -) 500 mg PO BID [facility] Last Admin: 12/09/16 09:06 Dose: 500 mg Docusate Sodium (Colace -) 100 mg PO BID [facility] Last Admin: 12/09/16 09:06 Dose: Not Given Dorzolamide HCl (Trusopt 2%) 1 drop OU BID [facility] Last Admin: 12/09/16 09:08 Dose: 1 drop Heparin Sodium (Porcine) (Heparin -) 5,000 unit SQ BID [facility] Last Admin: 12/09/16 09:07 Dose: 5,000 unit Insulin Aspart (Novolog Vial Sliding Scale -) 0 vial SQ ACHS [facility] PRN Reason: Protocol Last Admin: 12/09/16 11:58 Dose: 6 units Levothyroxine Sodium (Synthroid -) 50 mcg PO DAILY@0700 [facility] Last Admin: 12/09/16 06:28 Dose: Not Given Ramipril (Altace -) 2.5 mg PO DAILY [facility] Last Admin: 12/09/16 09:06 Dose: 2.5 mg Timolol Maleate (Timoptic 0.5%) 1 drop OU BID [facility] Last Admin: 12/09/16 09:08 Dose: 1 drop - Objective Vital Signs: Vital Signs Temperature 97.6 F 12/09/16 05:58 Pulse Rate 100 H 12/09/16 09:00 Respiratory Rate 18 12/09/16 09:00 Blood Pressure 121/74 12/09/16 09:00 O2 Sat by Pulse Oximetry (%) 100 12/08/16 20:07 Constitutional: Yes: Calm Eyes: Yes: Conjunctiva Clear HENT: Yes: Atraumatic Cardiovascular: Yes: S1, S2 Gastrointestinal: Yes: Soft Genitourinary: Yes: WNL Musculoskeletal: Yes: WNL Extremities: Yes: WNL Edema: LLE: Trace Integumentary: Yes: Other (left leg cellulitis improved) Neurological: Yes: Oriented Psychiatric: Yes: Oriented Labs: CBC, BMP 12/09/16 07:30 12/09/16 07:30 INR, PTT INR 1.20 (0.82-1.09) H 12/02/16 18:18 Problem List - Problems (1) CHF (congestive heart failure) Code(s): I50.9 - HEART FAILURE, UNSPECIFIED (2) Chronic kidney disease Code(s): N18.9 - CHRONIC KIDNEY DISEASE, UNSPECIFIED Qualifiers: Chronic kidney disease stage: unspecified stage Qualified Code(s): N18.9 - Chronic kidney disease, unspecified (3) HTN (hypertension) Code(s): I10 - ESSENTIAL (PRIMARY) HYPERTENSION (4) LEDY (acute kidney injury) Code(s): N17.9 - ACUTE KIDNEY FAILURE, UNSPECIFIED (5) Bipolar 1 disorder Code(s): F31.9 - BIPOLAR DISORDER, UNSPECIFIED (6) Cellulitis of left lower leg Code(s): L03.116 - CELLULITIS OF LEFT LOWER LIMB (7) Diabetes mellitus type 2 in obese Code(s): E11.9 - TYPE 2 DIABETES MELLITUS WITHOUT COMPLICATIONS E66.9 - OBESITY, UNSPECIFIED (8) Hypothyroid Code(s): E03.9 - HYPOTHYROIDISM, UNSPECIFIED Qualifiers: Hypothyroidism type: acquired Qualified Code(s): E03.9 - Hypothyroidism, unspecified Assessment/Plan Current Medications Generic Name Dose Route Start Last Admin Trade Name Freq PRN Reason Stop Dose Admin Acetaminophen 325 mg 12/03/16 11:00 Tylenol - PO Q6H PRN Amoxicillin/Clavulanate Potassium 1 tab 12/08/16 17:30 12/09/16 09:06 Augmentin - 500mg Tablet PO 1 tab BID@0800,1730 [facility] Administration Atorvastatin Calcium 10 mg 12/03/16 22:00 12/08/16 21:13 Lipitor - PO 10 mg HS [facility] Administration Chlorpromazine HCl 100 mg/ 150 mg 12/03/16 22:00 12/08/16 21:14 Chlorpromazine HCl 50 mg PO 150 mg HS [facility] Administration Collagenase 1 applic 12/04/16 10:00 12/09/16 09:08 Santyl - TP 1 applic DAILY [facility] Administration Divalproex Sodium 500 mg 12/03/16 22:00 12/09/16 09:06 Depakote - PO 500 mg BID [facility] Administration Docusate Sodium 100 mg 12/03/16 22:00 12/09/16 09:06 Colace - PO Not Given BID [facility] Dorzolamide HCl 1 drop 12/04/16 10:00 12/09/16 09:08 Trusopt 2% OU 1 drop BID [facility] Administration Heparin Sodium (Porcine) 5,000 unit 12/03/16 10:00 12/09/16 09:07 Heparin - SQ 5,000 unit BID [facility] Administration Insulin Aspart 0 vial 12/03/16 16:30 12/09/16 11:58 Novolog Vial Sliding Scale - SQ 6 units ACHS [facility] Administration Protocol Levothyroxine Sodium 50 mcg 12/06/16 07:00 12/09/16 06:28 Synthroid - PO Not Given DAILY@0700 [facility] Ramipril 2.5 mg 12/04/16 10:00 12/09/16 09:06 Altace - PO 2.5 mg DAILY [facility] Administration Timolol Maleate 1 drop 12/04/16 10:00 12/09/16 09:08 Timoptic 0.5% OU 1 drop BID [facility] Administration Impression 1. CKD 2. DM 3. sepsis 4. cellulitis 5. bipolar 6. schizophrenia 7. hypothyroidism Plan - renal function continues to improve - will need better glucose control, this was also discussed with pt - can have renal workup done as outpt - abx per ID - cont with christina Santamaria
[2016-12-09 14:08] VITALS: PULSE 96; TEMP 97.4
== END 2016-12-09 14:22 | disposition home or self-care (01) | DRG 872 ==
LOC: JER 17:56 → JERBED 21:44 → J6S 12-03 15:45
PROVIDERS: ADMIT Family Medicine; ATTEND Family Medicine
DX: A41.9 Sepsis, unspecified organism (principal); L03.116 Cellulitis of left lower limb; I13.0 Hypertensive heart and chronic kidney disease with heart failure and stage 1 through stage 4 chronic kidney disease, or unspecified chronic kidney disease; N17.9 Acute kidney failure, unspecified; E10.51 Type 1 diabetes mellitus with diabetic peripheral angiopathy without gangrene; L97.529 Non-pressure chronic ulcer of other part of left foot with unspecified severity; F29 Unspecified psychosis not due to a substance or known physiological condition; E11.22 Type 2 diabetes mellitus with diabetic chronic kidney disease; N18.9 Chronic kidney disease, unspecified; I50.9 Heart failure, unspecified; Z79.4 Long term (current) use of insulin; E03.9 Hypothyroidism, unspecified; F31.9 Bipolar disorder, unspecified; I95.9 Hypotension, unspecified; F17.210 Nicotine dependence, cigarettes, uncomplicated; R45.1 Restlessness and agitation
CPT/HCPCS: 36415; 36600; 71010-TC; 73721-RT-TC; 80048; 80053; 81003; 81015; 82550; 82553; 82570; 82803; 82947; 83036; 83605; 83880; 84156; 84439; 84443; 84484; 85025; 85027; 85610; 85651; 85730; 86140; 86850; 86900; 86901; 87040; 87086; 87804; 93005; 93010; 97116-GP; 97161-GP; 99285-25; G0480; J1644

== ENCOUNTER 2018-04-22 00:37 | Emergency (ER) | payer OTHER ==
[2018-04-22 00:52] VITALS: BP 155/91; PULSE 97; TEMP 98; BMI 30.4
--- NOTE | 2018-04-22 01:47 | PDOC ---
History of Present Illness <Isael Aguilar - Last Filed: 04/22/18 02:19> - History of Present Illness Initial Comments: 04/22/18 01:59 "The patient is a year old male, with a significant past medical history of IDDM , CHF, CKD, hypothyroidism, bipolar disorder, and schizophrenia, who presents to the emergency department with, back pain. As per patient, he has stretching his hamstrings when he felt a pulling sensation. He felt an immediate onset of pain radiating from his lower back radiating down to his left leg. The patient has a history of bulging discs in his L3, L4, and L5. He denies any numbness or weakness in his lower extremities. Denies difficulty controlling his bowel or bladder. Denies saddle anesthesia. He denies any recent fevers, chills, headache or dizziness. He denies any recent nausea, vomit, diarrhea or constipation. He denies any recent chest pain or shortness of breath. He denies any recent dysuria, frequency, urgency or hematuria. Allergies: NKA Past surgical history: None reported. Social History: Nonsmoker. Denies EtOH use and recreational drug use. Primary Care Physician: Dr. Rey Pitts " <Sushil Barajas - Last Filed: 04/22/18 02:23> - General Chief Complaint: Back Pain Stated Complaint: BACK PAIN Time Seen by Provider: 04/22/18 01:00 Past History <Isael Aguilar - Last Filed: 04/22/18 02:19> - Past Medical History Anemia: No Asthma: No Cardiac Disorders: Yes (hypertension) CVA: No CHF: Yes Dementia: No Diabetes: Yes GI Disorders: Yes (chronic kidney disorder) Disorders: No HTN: Yes Hypercholesterolemia: Yes Psychiatric Problems: Yes (bipolar disorder,unspecified schizophrenia) Seizures: No Thyroid Disease: Yes (hypothyroidism) - Surgical History Abdominal Surgery: No Appendectomy: No Cardiac Surgery: No Cholecystectomy: No Lung Surgery: No Neurologic Surgery: No - Immunization History Immunization Up to Date: Yes - Suicide/Smoking/Psychosocial Hx Smoking History: Never smoked Have you smoked in the past 12 months: No Number of Cigarettes Smoked Daily: 10 Information on smoking cessation initiated: No 'Breaking Loose' booklet given: 12/03/16 Hx Alcohol Use: No Drug/Substance Use Hx: No Substance Use Type: None Hx Substance Use Treatment: No <Sushil Barajas - Last Filed: 04/22/18 02:23> - Past Medical History Allergies/Adverse Reactions: Allergies Allergy/AdvReac Type Severity Reaction Status Date / Time No Known Allergies Allergy Verified 04/22/18 00:44 Home Medications: Ambulatory Orders Amlodipine Besylate [Norvasc -] 5 mg PO DAILY 04/22/18 Aripiprazole [Abilify -] 15 mg PO HS 04/22/18 Atorvastatin Ca [Lipitor] 40 mg PO HS 04/22/18 Chlorpraoz 100 mg PO HS 04/22/18 Cholecalciferol (Vitamin D3) [Vitamin D3 -] 50,000 unit PO WEEKLY 04/22/18 Fenofibrate 145 mg PO HS 04/22/18 Insulin Glargine,Hum.rec.anlog [Toujeo Solostar] 90 unit SQ DAILY 04/22/18 Insulin Lispro [Humalog] 12 unit SQ TID 04/22/18 Levothyroxine [Synthroid -] 50 mcg PO DAILY 04/22/18 Lorazepam [Ativan] 1 mg PO BID 04/22/18 Review of Systems - Review of Systems Comments:: 04/22/18 01:59 "GENERAL/CONSTITUTIONAL: No fever or chills. No weakness. HEAD, EYES, EARS, NOSE AND THROAT: No change in vision. No ear pain or discharge. No sore throat. CARDIOVASCULAR: No chest pain or shortness of breath. RESPIRATORY: No cough, wheezing, or hemoptysis. GASTROINTESTINAL: No nausea, vomiting, diarrhea or constipation. GENITOURINARY: No dysuria, frequency, or change in urination. +MUSCULOSKELETAL: Back pain. No joint or muscle swelling or pain. No neck pain. SKIN: No rash NEUROLOGIC: No headache, vertigo, loss of consciousness, or change in strength/ sensation. ENDOCRINE: No increased thirst. No abnormal weight change. HEMATOLOGIC/LYMPHATIC: No anemia, easy bleeding, or history of blood clots. ALLERGIC/IMMUNOLOGIC: No hives or skin allergy. " <Sushil Barajas - Last Filed: 04/22/18 02:23> *Physical Exam - Vital Signs Last Vital Signs Temp Pulse Resp BP Pulse Ox 98.0 F 97 H 18 155/91 99 04/22/18 00:44 04/22/18 00:44 04/22/18 00:44 04/22/18 00:44 04/22/18 00:44 <Isael Aguilar - Last Filed: 04/22/18 02:19> - Vital Signs Last Vital Signs Temp Pulse Resp BP Pulse Ox 98.0 F 97 H 18 155/91 99 04/22/18 00:44 04/22/18 00:44 04/22/18 00:44 04/22/18 00:44 04/22/18 00:44 - Physical Exam Comments: 04/22/18 01:59 """GENERAL: Awake, alert, and fully oriented, in no acute distress. HEAD: No signs of trauma EYES: PERRLA, EOMI, sclera anicteric, conjunctiva clear ENT: Auricles normal inspection, hearing grossly normal, nares patent, oropharynx clear without exudates. Moist mucosa NECK: Nontender, no stepoffs, Normal ROM, supple, no lymphadenopathy, JVD, or masses LUNGS: Breath sounds equal, clear to auscultation bilaterally. No wheezes, and no crackles HEART: Regular rate and rhythm, normal S1 and S2, no murmurs, rubs or gallops ABDOMEN: Soft, nontender, normoactive bowel sounds. No guarding, no rebound. No masses EXTREMITIES: Normal range of motion, no edema. No clubbing or cyanosis. No cords, erythema, or tenderness NEUROLOGICAL: + L Straight leg test, Cranial nerves II through XII intact. 5/5 strength and sensation in all extremities, Normal speech, normal gait, normal cerebellar function SKIN: Warm, Dry, normal turgor, no rashes or lesions noted. """ <Sushil Barajas - Last Filed: 04/22/18 02:23> ED Treatment Course - Medications Given in the ED: ED Medications Discontinued Medications Generic Name Dose Route Start Last Admin Trade Name Freq PRN Reason Stop Dose Admin Acetaminophen 1,000 mg 04/22/18 02:01 04/22/18 02:06 Tylenol - PO 04/22/18 02:02 1,000 mg ONCE ONE Administration <Isael Aguilar - Last Filed: 04/22/18 02:19> Medical Decision Making - Medical Decision Making 04/22/18 01:44 47 M with atraumatic lower back pain. Likely sciatic nerve vs herniated disc. Pt with no neuro deficits. No evidence of cord compression or cauda equina. - Naproxen - F/u ortho Pt is well appearing, with normal vitals. Clinically stable for DC at this time. I discussed the physical exam findings, ancillary test results and final diagnoses with the patient. I answered all of the patient's questions. The patient was satisfied with the care received and felt comfortable with the discharge plan and treatment plan. The patient agrees to follow up with the primary care physician within 24-72 hours. <Sushil Barajas - Last Filed: 04/22/18 02:23> *DC/Admit/Observation/Transfer - Attestations Scribe Attestion: 04/22/18 02:19 Documentation prepared by Isael Aguilar, acting as bacteriologist medical for Sushil Barajas MD. <Isael Aguilar - Last Filed: 04/22/18 02:19> - Attestations Physician Attestion: 04/22/18 01:47 I, Dr. Sushil Barajas MD, attest that this document has been prepared under my direction and personally reviewed by me in its entirety. I further attest, that it accurately reflects all work, treatment, procedures and medical decision -making performed by me. <Sushil Barajas - Last Filed: 04/22/18 02:23> Diagnosis at time of Disposition: Back pain - Discharge Dispostion Disposition: HOME - Referrals Referrals: Rey Pitts [Primary Care Provider] - Neal Forde MD [Staff Physician] - - Patient Instructions Printed Discharge Instructions: DI for Low Back Pain Additional Instructions: Take tylenol as needed for pain. Avoid NSAIDs such as ibuprofen, aspirin, or naproxen, as this may affect your kidneys. If you experience any worsening pain, weakness or numbness in your legs, incontinence, or any other concerning symptoms, return to the ER immediately. Otherwise, follow up with orthopedics within 1 week for further evaluation. You may need a MRI. Call the number provided to make an appointment. - Post Discharge Activity
[2018-04-22] MEDS ORDERED: ACETAMINOPHEN 500 MG TABLET (FP) PO ONE (02:01)
[2018-04-22] MEDS ORDERED: ACETAMINOPHEN 325 MG TABLET (FP) ONE (02:05)
== END 2018-04-22 02:21 | disposition home or self-care (01) ==
LOC: JER 00:37
DX: M54.42 Lumbago with sciatica, left side (principal); I12.9 Hypertensive chronic kidney disease with stage 1 through stage 4 chronic kidney disease, or unspecified chronic kidney disease; E11.22 Type 2 diabetes mellitus with diabetic chronic kidney disease; N18.9 Chronic kidney disease, unspecified; Z79.4 Long term (current) use of insulin; E03.9 Hypothyroidism, unspecified; F41.9 Anxiety disorder, unspecified; F20.9 Schizophrenia, unspecified
CPT/HCPCS: 99281-25